=== PATIENT | female | born 1990 | race African-American/Black ===

== ENCOUNTER → 2016-12-01 | Outpatient (CLI) | payer MEDICAID | LOC: WI 09:38 | PROVIDERS: ATTEND Nurse Practitioner Family | DX: R10.11 Right upper quadrant pain (principal); K76.0 Fatty (change of) liver, not elsewhere classified | CPT/HCPCS: 76705 ==

== ENCOUNTER 2017-02-06 16:54 | Emergency (ER) | payer MEDICAID ==
[2017-02-06] MEDS ORDERED: DIAZEPAM 5 MG TABLET PO ONE (19:06)
[2017-02-06] MEDS ORDERED: DIPHENHYDRAMINE HCL 50 MG/ML VIAL IV ONE (19:09)
[2017-02-06] MEDS ORDERED: PROCHLORPERAZINE EDISYLATE INJ 10 MG/2 ML VIAL IV ONE (19:09)
--- NOTE | 2017-02-06 19:09 | ER Document Report ---
ED Medical Screen (RME) - General Chief Complaint: Headache Stated Complaint: HEADACHE Mode of Arrival: Ambulatory Information source: Patient Notes: 26-year-old female presents with complaints of headache one week duration in the frontal parietal occipital regions and the right lateral neck. Patient notes it hurts when she moves her neck. Denies any fevers or chills I have greeted and performed a rapid initial assessment of this patient. A comprehensive ED assessment and evaluation of the patient, analysis of test results and completion of the medical decision making process will be conducted by additional ED providers. PHYSICAL EXAMINATION: GENERAL: Well-appearing, well-nourished and in no acute distress. HEAD: Atraumatic, normocephalic. EYES: Pupils equal round extraocular movements intact, conjunctiva are normal. ENT: Nares patent right neck pain NECK: Normal range of motion LUNGS: No respiratory distress Musculoskeletal: Normal range of motion NEUROLOGICAL: Normal speech, normal gait. PSYCH: Normal mood, normal affect. SKIN: Warm, Dry, normal turgor, no rashes or lesions noted. TRAVEL OUTSIDE OF THE [place] IN LAST 30 DAYS: No - Related Data Allergies/Adverse Reactions: lidocaine [Lidocaine] Allergy (Verified 02/06/17 17:14) morphine [Morphine] Adverse Reaction (Severe, Verified 02/06/17 17:14) headache Past Medical History - Social History Chew tobacco use (# tins/day): No Frequency of alcohol use: None Drug Abuse: None - Past Medical History Cardiac Medical History: Denies: Hx Hypercholesterolemia, Hx Hypertension Pulmonary Medical History: Denies: Hx Asthma Neurological Medical History: Denies: Hx Migraine Endocrine Medical History: Denies: Hx Diabetes Mellitus Type 1, Hx Diabetes Mellitus Type 2 Renal/ Medical History: Denies: Hx Peritoneal Dialysis GI Medical History: Denies: Hx Gastroesophageal Reflux Disease Musculoskeltal Medical History: Infectious Medical History: Past Surgical History: Reports: Hx Section - x 3, Hx Tubal Ligation - Immunizations Immunizations up to date: Yes Hx Diphtheria, Pertussis, Tetanus Vaccination: Yes - 2010 Physical Exam - Vital signs Vitals: Temp Pulse Resp BP Pulse Ox 98.6 F 100 20 136/92 H 98 02/06/17 17:13 02/06/17 17:13 02/06/17 17:13 02/06/17 17:13 02/06/17 17:13 Course - Vital Signs Vital signs: Temp Pulse Resp BP Pulse Ox 98.6 F 100 20 136/92 H 98 02/06/17 17:13 02/06/17 17:13 02/06/17 17:13 02/06/17 17:13 02/06/17 17:13
[2017-02-06 20:43] VITALS: BP 143/85
--- NOTE | 2017-02-06 20:46 | ER Document Report ---
ED General - General Chief Complaint: Headache Stated Complaint: HEADACHE Mode of Arrival: Ambulatory Information source: Patient Notes: 26-year-old female presents with complaints of headache one week duration in the frontal parietal occipital regions and the right lateral neck. Patient notes it hurts when she moves her neck. Denies any fevers or chills TRAVEL OUTSIDE OF THE [place] IN LAST 30 DAYS: No - HPI Onset: Last week Onset/Duration: Persistent Quality of pain: Achy Severity: Mild Pain Level: 1 Associated symptoms: Headache Exacerbated by: Movement Relieved by: Denies Similar symptoms previously: No Recently seen / treated by doctor: No - Related Data Allergies/Adverse Reactions: lidocaine [Lidocaine] Allergy (Verified 02/06/17 17:14) morphine [Morphine] Adverse Reaction (Severe, Verified 02/06/17 17:14) headache Past Medical History - General Information source: Patient - Social History Smoking Status: Never Smoker Cigarette use (# per day): No Chew tobacco use (# tins/day): No Smoking Education Provided: No Frequency of alcohol use: None Drug Abuse: None Family History: Arthritis, DM, Hyperlipidemia, Hypertension, Malignancy, Thyroid Disfunction Patient has suicidal ideation: No Patient has homicidal ideation: No - Past Medical History Cardiac Medical History: Denies: Hx Hypercholesterolemia, Hx Hypertension Pulmonary Medical History: Denies: Hx Asthma Neurological Medical History: Denies: Hx Migraine Endocrine Medical History: Denies: Hx Diabetes Mellitus Type 1, Hx Diabetes Mellitus Type 2 Renal/ Medical History: Denies: Hx Peritoneal Dialysis GI Medical History: Denies: Hx Gastroesophageal Reflux Disease Musculoskeltal Medical History: Infectious Medical History: Past Surgical History: Reports: Hx Section - x 3, Hx Tubal Ligation - Immunizations Immunizations up to date: Yes Hx Diphtheria, Pertussis, Tetanus Vaccination: Yes - 2010 Review of Systems - Review of Systems Notes: REVIEW OF SYSTEMS: CONSTITUTIONAL : Denies fever, chills, or sweats. Denies recent illness. EENT: Admits to right lateral neck muscle pain CARDIOVASCULAR: Denies chest pain. Denies palpitations or racing or irregular heart beat. Denies ankle edema. RESPIRATORY: Denies cough, cold, or chest congestion. Denies shortness of breath, difficulty breathing, or wheezing. GASTROINTESTINAL: Denies abdominal pain or distention. Denies nausea, vomiting , or diarrhea. Denies blood in vomitus, stools, or per rectum. Denies black, tarry stools. Denies constipation. GENITOURINARY: Denies difficulty urinating, painful urination, burning, frequency, blood in urine, or discharge. FEMALE GENITOURINARY: Denies vaginal bleeding, heavy or abnormal periods, irregular periods. Denies vaginal discharge or odor. MUSCULOSKELETAL: Admits to right lateral neck muscle pain SKIN: Denies rash, lesions or sores. HEMATOLOGIC : Denies easy bruising or bleeding. LYMPHATIC: Denies swollen, enlarged glands. NEUROLOGICAL: Admits to headache PSYCHIATRIC: Denies anxiety or stress. Denies depression, suicidal ideation, or homicidal ideation. ALL OTHER SYSTEMS REVIEWED AND NEGATIVE. Dictation was performed using [employer] voice recognition software PHYSICAL EXAMINATION: GENERAL: Well-appearing, well-nourished and in no acute distress. HEAD: Atraumatic, normocephalic. EYES: Pupils equal round and reactive to light, extraocular movements intact, conjunctiva are normal. ENT: Nares patent, oropharynx clear without exudates. Moist mucous membranes. NECK: Normal range of motion, supple without lymphadenopathy it is tender on the right lateral paraspinal muscles into the trapezius LUNGS: Breath sounds clear to auscultation bilaterally and equal. No wheezes rales or rhonchi. HEART: Regular rate and rhythm without murmurs ABDOMEN: Soft, nontender, nondistended abdomen. No guarding, no rebound. No masses appreciated. Female : deferred Musculoskeletal: Normal range of motion, no pitting or edema. No cyanosis. NEUROLOGICAL: Cranial nerves grossly intact. Normal speech, normal gait. Normal sensory, motor exams PSYCH: Normal mood, normal affect. SKIN: Warm, Dry, normal turgor, no rashes or lesions noted. Physical Exam - Vital signs Vitals: Temp Pulse Resp BP Pulse Ox 98.6 F 100 20 136/92 H 98 02/06/17 17:13 02/06/17 17:13 02/06/17 17:13 02/06/17 17:13 02/06/17 17:13 Course - Re-evaluation Re-evalutation: 02/06/17 20:44 CT of the head was emergently performed which noted no acute abnormality, patient's presentation is more consistent with a cervical strain headache, patient was given Valium and notes symptoms have improved significantly. Patient wishes to be discharged home. Plan was to bring the patient back to room but given that her symptoms are much better and she wishes to be discharged home I will discharge her at her request at this time After performing a Medical Screening Examination, I estimate there is LOW risk for ACUTE GLAUCOMA, TEMPORAL ARTERITIS, MENINGITIS, INCRANIAL HEMORRHAGE, or ISCHEMIC STROKE thus I consider the discharge disposition reasonable. I have reevaluated this patient multiple times and no significant life threatening changes are noted. The patient and I have discussed the diagnosis and risks, and we agree with discharging home with close follow-up with the understanding that symptoms and presentations can change. We also discussed returning to the Emergency Department immediately if new or worsening symptoms occur. We have discussed the symptoms which are most concerning (e.g., changing or worsening symptoms, new numbness or weakness, vomiting, fever) that necessitate immediate return. - Vital Signs Vital signs: Temp Pulse Resp BP Pulse Ox 98.6 F 100 20 136/92 H 98 02/06/17 17:13 02/06/17 17:13 02/06/17 17:13 02/06/17 17:13 02/06/17 17:13 - Diagnostic Test Radiology reviewed: Image reviewed, Reports reviewed - No acute abnormality Discharge - Discharge Clinical Impression: cervical headache Condition: Stable Disposition: HOME, SELF-CARE Instructions: Neck Injury (Cervical Strain) ([facility]), Headache ([facility]) Prescriptions: Cyclobenzaprine HCl [Flexeril 10 mg Tablet] 10 mg PO TIDP PRN #10 tablet PRN Reason: Diazepam [Valium 5 mg Tablet] 5 mg PO QIDP PRN #10 tablet PRN Reason: Referrals: LLOYD LEMUS MD [ACTIVE STAFF] - Follow up tomorrow
== END 2017-02-06 20:43 | disposition home or self-care (01) ==
LOC: ER 16:54
DX: R51 Headache (principal); M54.2 Cervicalgia; Z88.4 Allergy status to anesthetic agent
CPT/HCPCS: 99284; 96374; 96375; 70450; J3490; J1200; J0780

== ENCOUNTER 2017-02-10 22:58 | Emergency (ER) | payer MEDICAID ==
[2017-02-11] MEDS ORDERED: PENICILLIN G BENZATHINE 1.2 MILLION UNIT/2 ML DISP.SYRIN IM ONE (02:40)
--- NOTE | 2017-02-11 02:40 | ER Document Report ---
ED ENT - General Chief Complaint: Cold Symptoms Stated Complaint: COUGH AND HEADACHE Time seen by provider: 02:40 Mode of Arrival: Ambulatory Information source: Patient TRAVEL OUTSIDE OF THE [place] IN LAST 30 DAYS: No - HPI Patient complains to provider of: Throat problem Onset: Other - 2 days Onset/Duration: Persistent, Worse Quality of pain: Achy Severity: Moderate Pain Level: 2 Location of pain: Sinus, Throat Associated symptoms: Chills, Congestion, Cough, Sinus pain Notes: Patient is a 18-year-old female with no past medical history besides migraine headaches, who presents to the emergency room complaining of a sore throat with cough productive of clear phlegm at times, congestion, sinus pain and pressure, as well as a headache, symptoms of going on for the past 2 days and worsen this evening, she denies any sick contacts - Related Data Allergies/Adverse Reactions: lidocaine [Lidocaine] Allergy (Verified 02/11/17 00:09) morphine [Morphine] Adverse Reaction (Severe, Verified 02/11/17 00:09) headache Past Medical History - General Information source: Patient - Social History Smoking Status: Never Smoker Family History: Arthritis, DM, Hyperlipidemia, Hypertension, Malignancy, Thyroid Disfunction Patient has suicidal ideation: No Patient has homicidal ideation: No - Past Medical History Cardiac Medical History: Denies: Hx Hypercholesterolemia, Hx Hypertension Pulmonary Medical History: Denies: Hx Asthma Neurological Medical History: Denies: Hx Migraine Endocrine Medical History: Denies: Hx Diabetes Mellitus Type 1, Hx Diabetes Mellitus Type 2 Renal/ Medical History: Denies: Hx Peritoneal Dialysis GI Medical History: Denies: Hx Gastroesophageal Reflux Disease Musculoskeltal Medical History: Infectious Medical History: Past Surgical History: Reports: Hx Section - x 3, Hx Tubal Ligation - Immunizations Immunizations up to date: Yes Hx Diphtheria, Pertussis, Tetanus Vaccination: Yes - 2010 Review of Systems - Review of Systems Constitutional: See HPI EENT: See HPI Cardiovascular: No symptoms reported Respiratory: Cough Gastrointestinal: No symptoms reported Genitourinary: No symptoms reported Female Genitourinary: No symptoms reported Musculoskeletal: No symptoms reported Skin: No symptoms reported Hematologic/Lymphatic: No symptoms reported Neurological/Psychological: No symptoms reported -: Yes All other systems reviewed and negative Physical Exam - Vital signs Vitals: Temp Pulse Resp BP Pulse Ox 98.9 F 115 H 22 H 146/94 H 100 02/11/17 00:11 02/11/17 00:11 02/11/17 00:11 02/11/17 00:11 02/11/17 00:11 Interpretation: Hypertensive, Tachycardic - General General appearance: Alert In distress: None - HEENT Head: Normocephalic, Atraumatic Eyes: Normal Conjunctiva: Normal Extraocular movements intact: Yes Eyelashes: Normal Pupils: PERRL Ears: Normal External canal: Normal Tympanic membrane: Normal Sinus: Maxillary, Tenderness Mouth/Lips: Normal Pharynx: Erythema, Exudate, Tonsillar hypertrophy Neck: Normal - Respiratory Respiratory status: No respiratory distress Chest status: Nontender Breath sounds: Normal Chest palpation: Normal - Cardiovascular Rhythm: Regular, Tachycardia Heart sounds: Normal auscultation Murmur: No - Abdominal Inspection: Normal Distension: No distension Bowel sounds: Normal Tenderness: Nontender Organomegaly: No organomegaly - Back Back: Normal, Nontender - Extremities General upper extremity: Normal inspection, Nontender, Normal color, Normal ROM , Normal temperature General lower extremity: Normal inspection, Nontender, Normal color, Normal ROM , Normal temperature, Normal weight bearing. No: Shawanda's sign - Neurological Neuro grossly intact: Yes Cognition: Normal Orientation: AAOx4 Carson Coma Scale Eye Opening: Spontaneous Carson Coma Scale Verbal: Oriented Dee Coma Scale Motor: Obeys Commands Dee Coma Scale Total: 15 Speech: Normal Motor strength normal: LUE, RUE, LLE, RLE Sensory: Normal - Psychological Associated symptoms: Normal affect, Normal mood - Skin Skin Temperature: Warm Skin Moisture: Dry Skin Color: Normal Course - Re-evaluation Re-evalutation: 02/11/17 03:38 Physical exam findings are consistent with strep pharyngitis, patient also noted to be mildly tachycardic, and complaining of a headache, she was given IV fluids and medications, as well as a Bicillin injection, advised to take Tylenol or Motrin as needed for pain or fever, follow up with a primary care provider in 2-3 days as needed or return if symptoms worsen, patient acknowledges understanding and agreement with this plan 02/11/17 04:08 Patient reports headache is resolved after receiving IV fluids and medications, she will be discharged with instructions - Vital Signs Vital signs: Temp Pulse Resp BP Pulse Ox 98.0 F 105 H 22 H 141/88 H 98 02/11/17 02:57 02/11/17 02:57 02/11/17 00:11 02/11/17 02:57 02/11/17 02:57 Discharge - Discharge Clinical Impression: Strep pharyngitis Condition: Stable Disposition: HOME, SELF-CARE Instructions: Strep Throat ([facility]) Additional Instructions: Follow up with your primary care provider in one to 2 days. Return to the emergency room immediately if symptoms worsen or any additional concerns. Drink plenty fluids and get plenty of rest. Tylenol or Motrin as needed for fever or pain. Forms: Return to Work
[2017-02-11] MEDS ORDERED: NORMAL SALINE 1000 ML 1,000 ML IV PRN (02:58)
[2017-02-11] MEDS ORDERED: KETOROLAC TROMETHAMINE INJ/PF 30 MG/1 ML SDV IV ONE (02:58)
[2017-02-11 05:06] VITALS: BP 125/80
== END 2017-02-11 05:06 | disposition home or self-care (01) ==
LOC: ER 22:58
DX: J02.0 Streptococcal pharyngitis (principal); R05 Cough; R51 Headache; J02.9 Acute pharyngitis, unspecified; R09.81 Nasal congestion
CPT/HCPCS: 99282; 96372; 96361; 96374; J1885; J0561; J7030

== ENCOUNTER 2017-02-12 19:05 | Emergency (ER) | payer MEDICAID ==
[2017-02-12] MEDS ORDERED: BENZONATATE 100 MG CAPSULE PO ONE (20:01)
[2017-02-12] MEDS ORDERED: IBUPROFEN 800 MG TABLET PO ONE (20:01)
--- NOTE | 2017-02-12 20:04 | ER Document Report ---
HPI - HPI Patient complains to provider of: right hip pain Onset: Yesterday Onset/Duration: Gradual Quality of pain: Achy Pain Level: 3 Context: Patient was seen here yesterday for strep pharyngitis and given an injection of Bicillin to her right hip. Patient complains of tenderness and a palpable nodule under the surface of the skin. Patient complains of continued cough and congestion. Associated Symptoms: Nonproductive cough, Sore throat, Other - Right hip tenderness. denies: Fever Exacerbated by: Denies Relieved by: Denies Similar symptoms previously: No Recently seen / treated by doctor: Yes - ROS ROS below otherwise negative: Yes Systems Reviewed and Negative: Yes All other systems reviewed and negative - CONSTITUTIONAL Constitutional: DENIES: Fever - EENT EENT: REPORTS: Sore Throat, Congestion - RESPIRATORY Respiratory: REPORTS: Coughing. DENIES: Trouble Breathing - GASTROINTESTINAL Gastrointestinal: DENIES: Nausea, Patient vomiting - Tender nodule to right hip - REPRODUCTIVE Reproductive: DENIES: : - DERM Skin Color: Normal Past Medical History - General Information source: Patient - Social History Smoking Status: Never Smoker Frequency of alcohol use: Occasional Drug Abuse: None Occupation: none Lives with: Family Family History: Arthritis, DM, Hyperlipidemia, Hypertension, Malignancy, Thyroid Disfunction - Past Medical History Cardiac Medical History: Denies: Hx Hypercholesterolemia, Hx Hypertension Pulmonary Medical History: Denies: Hx Asthma Neurological Medical History: Reports: Hx Migraine Endocrine Medical History: Denies: Hx Diabetes Mellitus Type 1, Hx Diabetes Mellitus Type 2 Renal/ Medical History: Denies: Hx Peritoneal Dialysis GI Medical History: Denies: Hx Gastroesophageal Reflux Disease Musculoskeltal Medical History: Infectious Medical History: Past Surgical History: Reports: Hx Section - x 3, Hx Tubal Ligation - Immunizations Immunizations up to date: Yes Hx Diphtheria, Pertussis, Tetanus Vaccination: Yes - 2010 Vertical Provider Document - CONSTITUTIONAL Agree With Documented VS: Yes Exam Limitations: No Limitations General Appearance: WD/WN, No Apparent Distress - INFECTION CONTROL TRAVEL OUTSIDE OF THE [place] IN LAST 30 DAYS: No - HEENT HEENT: Atraumatic, Normocephalic, Pharyngeal Tenderness, Pharyngeal Erythema. negative: Pharyngeal Exudate, Tympanic Membrane Red, Tympanic Membrane Bulging - NECK Neck: Normal Inspection, Supple. negative: Lymphadenopathy-Left, Lymphadenopathy-Right - RESPIRATORY Respiratory: No Respiratory Distress, Rhonchi - CARDIOVASCULAR Cardiovascular: Regular Rate, Regular Rhythm, No Murmur - BACK Back: Normal Inspection - MUSCULOSKELETAL/EXTREMETIES Musculoskeletal/Extremeties: MAEW - NEURO Level of Consciousness: Awake, Alert, Appropriate Motor/Sensory: No Motor Deficit - DERM Integumentary: Warm, Dry Adult Front & Back Diagram: 1 - Mildly ecchymotic area with palpable nodule in subcutaneous tissue at the site of patient's most recent IM injection, no concern for cellulitis Discharge - Discharge Clinical Impression: pain at site of IM injection URI (upper respiratory infection) Qualifiers: URI type: unspecified URI Qualified Code(s): J06.9 - Acute upper respiratory infection, unspecified Condition: Stable Disposition: HOME, SELF-CARE Instructions: Upper Respiratory Illness ([facility]), Anti-Inflammatory Medication ( [facility]), Warm Packs ([facility]) Additional Instructions: Return immediately for any new or worsening symptoms Followup with your primary care provider, call tomorrow to make a followup appointment Apply warm compresses to right hip area frequently Prescriptions: Benzonatate [Tessalon Perle 100 mg Capsule] 100 mg PO Q8HP PRN #20 cap PRN Reason: Naproxen [Naprosyn 250 Nmg Tablet] 1 tab PO BID #14 tablet Referrals: [facility] [Provider Group] - Follow up as needed
[2017-02-12 20:12] VITALS: BP 148/88
== END 2017-02-12 20:11 | disposition home or self-care (01) ==
LOC: ER 19:05
DX: M25.551 Pain in right hip (principal); R22.41 Localized swelling, mass and lump, right lower limb; J02.0 Streptococcal pharyngitis; Z98.890 Other specified postprocedural states; R05 Cough; R11.2 Nausea with vomiting, unspecified
CPT/HCPCS: 99283; J3490 ×2

== ENCOUNTER 2017-08-09 19:13 | Emergency (ER) | payer MEDICAID ==
--- NOTE | 2017-08-09 21:24 | ER Document Report ---
ED General - General Chief Complaint: Abdominal Pain Stated Complaint: HEAD PAIN/STOMACH PAIN Time Seen by Provider: 08/09/17 20:50 Mode of Arrival: Ambulatory Information source: Patient, Friend Notes: Patient is a morbidly obese black female comes emergency room complaining of headache and abdominal pain. Patient states her headache started around 1 PM today it is frontal and works its way to the back. Denies any neck pain. She also states that approximately 4 PM she started having midepigastric pain that has made her feel like she is nauseated and wants to throw up. States her pain in her stomach and head seem to occur more when she is up and walking around. Patient denies any history of hypertension or other medical problems. She also states that she has been under an increased amount of stress in her life for the past month and a half. She does take phentermine for weight loss. She took it approximately 1 month ago but was sporadic in her taking it and this month she has been taking it on a regular basis as prescribed. She only has a history of 3 C-sections. She denies any chest pain or shortness of breath she has not vomited at all bowel movements have been normal. Patient points to mid epigastric area where her discomfort is located. TRAVEL OUTSIDE OF THE [place] IN LAST 30 DAYS: No - HPI Patient complains to provider of: Headache and abdominal pain Onset: This afternoon Onset/Duration: Gradual, Constant, Worse Quality of pain: Achy, Pressure, Sharp Severity: Severe Pain Level: 4 Associated symptoms: Headache, Nausea Exacerbated by: Standing, Movement, Walking Relieved by: Remaining still Similar symptoms previously: No Recently seen / treated by doctor: No - Related Data Allergies/Adverse Reactions: lidocaine [Lidocaine] Allergy (Verified 08/09/17 19:23) morphine [Morphine] Adverse Reaction (Severe, Verified 08/09/17 19:23) headache Past Medical History - General Information source: Patient Last Menstrual Period: 2 weeks ago - Social History Smoking Status: Never Smoker Frequency of alcohol use: None Drug Abuse: None 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 Lives with: Family Family History: Arthritis, DM, Hyperlipidemia, Hypertension, Malignancy, Thyroid Disfunction Patient has suicidal ideation: No Patient has homicidal ideation: No - Past Medical History Cardiac Medical History: Denies: Hx Hypercholesterolemia, Hx Hypertension Pulmonary Medical History: Denies: Hx Asthma Neurological Medical History: Reports: Hx Migraine Endocrine Medical History: Denies: Hx Diabetes Mellitus Type 1, Hx Diabetes Mellitus Type 2 Renal/ Medical History: Denies: Hx Peritoneal Dialysis GI Medical History: Denies: Hx Gastroesophageal Reflux Disease Musculoskeltal Medical History: Infectious Medical History: Past Surgical History: Reports: Hx Section - x 3, Hx Tubal Ligation - Immunizations Immunizations up to date: Yes Hx Diphtheria, Pertussis, Tetanus Vaccination: Yes - 2010 Review of Systems - Review of Systems Constitutional: No symptoms reported EENT: No symptoms reported Cardiovascular: No symptoms reported Respiratory: No symptoms reported Gastrointestinal: Abdominal pain Genitourinary: No symptoms reported Female Genitourinary: No symptoms reported Musculoskeletal: No symptoms reported Skin: No symptoms reported Hematologic/Lymphatic: No symptoms reported Neurological/Psychological: Headaches -: Yes All other systems reviewed and negative Physical Exam - Vital signs Vitals: Temp Pulse Resp BP Pulse Ox 98.5 F 79 16 151/108 H 100 08/09/17 19:21 08/09/17 19:21 08/09/17 19:21 08/09/17 19:21 08/09/17 19:21 - General General appearance: Alert - HEENT Head: Atraumatic Eyes: Normal Conjunctiva: Normal Extraocular movements intact: Yes Pupils: PERRL Ears: Normal External canal: Normal Tympanic membrane: Normal Sinus: Normal Nasal: Normal Mouth/Lips: Normal Mucous membranes: Normal Pharynx: Normal Neck: Normal - Respiratory Respiratory status: No respiratory distress Chest status: Nontender Breath sounds: Normal Chest palpation: Normal - Cardiovascular Heart sounds: Normal auscultation Murmur: No - Abdominal Inspection: Morbidly Obese Distension: No distension Bowel sounds: Normal Tenderness: Tender, Other - Midepigastric region only Organomegaly: No organomegaly Adult front & back diagram: 1 - Only discomfort and pain on palpation right midepigastric region. 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 Back in to talk the patient after all labs and CT were back. She indicates that her headache has improved almost gone and her abdominal pain has also dissipated. Also noted is patient's diastolic blood pressure was slightly elevated as well and we have discussed this and she will discontinue any additive salt and states that her blood pressure is usually low except when she does not feel good so she will monitor blood pressures at home and keep a log for her primary care however she will see. She has also been instructed should the headaches return or she becomes concerned to return to ER for a recheck. - Vital Signs Vital signs: Temp Pulse Resp BP Pulse Ox 98.5 F 79 16 151/108 H 100 08/09/17 19:21 08/09/17 19:21 08/09/17 19:21 08/09/17 19:21 08/09/17 19:21 - Laboratory Result Diagrams: 08/09/17 21:40 08/09/17 21:40 Laboratory results interpreted by me: 08/09/17 08/09/17 21:07 21:40 RDW 14.4 H Ur Leukocyte Esterase TRACE H - Diagnostic Test Radiology reviewed: Reports reviewed - No acute findings on CT report of the head. Mention of ethmoid inflammation however this is no change from the previous CT. Discharge - Discharge Clinical Impression: Tension headache, Chronic ethmoidal sinusitis, Reflux esophagitis, PUD (peptic ulcer disease) Condition: Stable Disposition: HOME, SELF-CARE Instructions: Abdominal Pain ([facility]), Acid-Suppressing Medication ([facility]), Prilosec (Acid Pump Inhibitor) ([facility]) Additional Instructions: Home and rest. Medication as prescribed and as necessary. As we discussed the headache since you have a recent history of moderate amount of increased stress in the past month we are going to treat you for a tension headache and for a early onset of peptic ulcer disease versus esophagitis or inflammation of her esophagus. I am placing you on Prilosec you can get this [id number] or by prescription and on a headache pill: Fioricet he may take as directed. Since you have a primary health provider I suggest contacting them tomorrow and following up. Also since you have an elevated blood pressure I would monitor your blood pressures and keep a log and present them to your primary healthcare provider in the next week to 10 days in order to see if there is any kind of an elevation in a reason to place you on medications. Again should you have any concerns or problems the headaches return the pain in the abdomen gets worse return to ER for a recheck. Prescriptions: Butalb/Acetaminophen/Caffeine [Fioricet (50-325-40 mg) Tablet] 1 - 2 tab PO Q4H #20 tab Omeprazole/Sodium Bicarbonate [Omeprazole-Bicarb 40-1,100 Cap] 1 each PO DAILY # 30 capsule Forms: Elevated Blood Pressure
[2017-08-09] MEDS ORDERED: ONDANSETRON 4 MG TAB.RAPDIS PO ONE (21:31)
[2017-08-09 21:54] LABS: ABSOLUTE BASOPHILS # (AUTO) 0.1 10^3/uL (0.0-0.2); ABSOLUTE EOSINOPHILS # (AUTO) 0.3 10^3/uL (0.0-0.6); ABSOLUTE LYMPHOCYTES (AUTO) 2.8 10^3/uL (0.5-4.7); ABSOLUTE MONOCYTES (AUTO) 0.5 10^3/uL (0.1-1.4); ABSOLUTE NEUT (AUTO) 5.4 10^3/uL (1.7-8.2); BASOPHILS % (AUTO) 0.9 % (0-2); EOSINOPHILS % (AUTO) 2.9 % (0-6); HEMATOCRIT 38.5 % (36.0-47.0); HEMOGLOBIN 12.8 g/dL (12.0-15.5); HGB HCT DIFFERENCE -0.1; MEAN CORPUSCULAR HEMOGLOBIN 28.9 pg (27.0-33.4); MEAN CORPUSCULAR HGB CONC 33.3 g/dL (32.0-36.0); MEAN CORPUSCULAR VOLUME 87 fl (80-97); MONOCYTES % (AUTO) 5.6 % (3-13); RED BLOOD COUNT 4.42 10^6/uL (3.72-5.28); RED CELL DISTRIBUTION WIDTH 14.4 % (11.5-14.0); SEGMENTED NEUTROPHILS % (AUTO) 59.6 % (42-78)
[2017-08-09 22:06] LABS: ALANINE AMINOTRANSFERASE 26 U/L (9-52); ALBUMIN 3.8 g/dL (3.5-5.0); ALKALINE PHOSPHATASE 97 U/L (38-126); ANION GAP 11 (5-19); ASPARTATE AMINO TRANSFERASE 15 U/L (14-36); BILIRUBIN,DIRECT 0.3 mg/dL (0.0-0.4); BILIRUBIN,TOTAL 0.7 mg/dL (0.2-1.3); BLOOD UREA NITROGEN 8 mg/dL (7-20); CALCIUM 9.5 mg/dL (8.4-10.2); CARBON DIOXIDE 28 mmol/L (22-30); CHLORIDE 103 mmol/L (98-107); CREATININE RESULT 0.73 mg/dL (0.52-1.25); GLUCOSE 95 mg/dL (75-110); POTASSIUM 4.1 mmol/L (3.6-5.0); SODIUM 141.6 mmol/L (137-145); TOTAL PROTEIN 7.4 g/dL (6.3-8.2)
--- NOTE | 2017-08-09 22:07 | RADIOLOGY REPORT (SQ) ---
EXAM DESCRIPTION: CT HEAD WITHOUT COMPLETED DATE/TIME: 08/09/2017 9:57 pm REASON FOR STUDY: headache new type from past COMPARISON: 02/06/2017. TECHNIQUE: Axial images acquired through the brain without intravenous contrast. Images reviewed wi th bone, brain and subdural windows. Images stored on PACS. All CT scanners at this facility use dose modulation, iterative reconstruction, and/or weight based d osing when appropriate to reduce radiation dose to as low as reasonably achievable (ALARA). [facility]: Dose Right [facility]: CareDose [facility]: Dose Right [facility]: Teradose 4D [facility]: [employer] RADIATION DOSE: Up-to-date CT equipment and radiation dose reduction techniques were employed. CTDIv ol: 64.6 mGy. DLP: 1163 mGy-cm. mGy. LIMITATIONS: None. FINDINGS: VENTRICLES: Normal size and contour. CEREBRUM: No masses. No hemorrhage. No midline shift. No evidence for acute infarction. Normal gra y/white matter differentiation. No areas of low density in the white matter. CEREBELLUM: No masses. No hemorrhage. No alteration of density. No evidence for acute infarction. EXTRAAXIAL SPACES: No fluid collections. No masses. ORBITS AND GLOBE: No intra- or extraconal masses. Normal contour of globe without masses. CALVARIUM: No fracture. PARANASAL SINUSES: Mucous membrane thickening in the ethmoid sinuses. SOFT TISSUES: No mass or hematoma. OTHER: No other significant finding. IMPRESSION: NORMAL BRAIN CT WITHOUT CONTRAST. ETHMOID SINUS DISEASE, SIMILAR TO THE PRIOR STUDY. EVIDENCE OF ACUTE STROKE: NO. COMMENT: Quality ID # [id number]: Final reports with documentation of one or more dose reduction techniques (e.g., Automated exposure control, adjustment of the mA and/or kV according to patient size, use of iterative reconstruction technique) TECHNICAL DOCUMENTATION: JOB ID: [id number] [employer]- All Rights Reserved
[2017-08-09 22:22] LABS: APPEARANCE,URINE SLIGHTLY-CLOUDY; BILIRUBIN,URINE NEGATIVE (NEGATIVE); GLUCOSE, URINE NEGATIVE (NEGATIVE); KETONES,URINE NEGATIVE (NEGATIVE); LEUKOCYTE ESTERASE,URINE TRACE (NEGATIVE); NITRITE,URINE NEGATIVE (NEGATIVE); PROTEIN,URINE NEGATIVE (NEGATIVE); URINE SPECIFIC GRAVITY 1.017; UROBILINOGEN,URINE NEGATIVE mg/dL (<2.0)
[2017-08-10 00:35] VITALS: BP 121/80
--- NOTE | 2017-08-10 10:31 | EKG REPORT ---
SEVERITY:- NORMAL ECG - SINUS RHYTHM : Confirmed by: Iwona Fallon 10-Aug-2017 10:31:06
== END 2017-08-10 00:37 | disposition home or self-care (01) ==
LOC: ER 19:13
DX: G44.209 Tension-type headache, unspecified, not intractable (principal); J32.2 Chronic ethmoidal sinusitis; K27.9 Peptic ulcer, site unspecified, unspecified as acute or chronic, without hemorrhage or perforation; K21.0 Gastro-esophageal reflux disease with esophagitis; R03.0 Elevated blood-pressure reading, without diagnosis of hypertension; R10.13 Epigastric pain; R11.0 Nausea; Z79.899 Other long term (current) drug therapy; Z88.4 Allergy status to anesthetic agent
CPT/HCPCS: 93005; 99284; 36415; 85025; 80053; 81001; 70450; 93010; S0119

== ENCOUNTER 2017-11-09 19:19 | Emergency (ER) | payer MEDICAID ==
[2017-11-09 20:04] LABS: APPEARANCE,URINE CLEAR; BILIRUBIN,URINE NEGATIVE (NEGATIVE); COLOR,URINE YELLOW; GLUCOSE, URINE NEGATIVE (NEGATIVE); KETONES,URINE NEGATIVE (NEGATIVE); LEUKOCYTE ESTERASE,URINE NEGATIVE (NEGATIVE); NITRITE,URINE NEGATIVE (NEGATIVE); PROTEIN,URINE NEGATIVE (NEGATIVE); URINE SPECIFIC GRAVITY 1.018; UROBILINOGEN,URINE NEGATIVE mg/dL (<2.0)
[2017-11-09] MEDS ORDERED: IBUPROFEN 800 MG TABLET PO ONE (22:47)
[2017-11-09] MEDS ORDERED: PHENAZOPYRIDINE HCL 200 MG TABLET PO ONE (22:47)
--- NOTE | 2017-11-09 22:51 | ER Document Report ---
ED General - General Chief Complaint: Urinary Problem Stated Complaint: URINE PROBLEM Time Seen by Provider: 11/09/17 22:16 TRAVEL OUTSIDE OF THE [place] IN LAST 30 DAYS: No - HPI Patient complains to provider of: Bladder pain back pain Notes: Patient coming in for evaluation of bladder pain states having dysuria and urinary frequency. Patient states is been ongoing for some time now saw her PCP today had a urinalysis performed and urine culture states her urinalysis was negative however like a second opinion therefore came to the ER today. Patient also states she has had right-sided back pain states it is similar to when she pinched nerve in the past. Patient also states she has been performing full dancing exercises at home. Patient states she has had 3 sections currently no vaginal discharge vaginal bleeding or trauma patient resting comfortably upon my evaluation. Patient states she is not taking any medication for either her back pain or her bladder pain. - Related Data Allergies/Adverse Reactions: lidocaine [Lidocaine] Allergy (Verified 11/09/17 19:21) morphine [Morphine] Adverse Reaction (Severe, Verified 11/09/17 19:21) headache Past Medical History - Social History Smoking Status: Unknown if Ever Smoked Family History: Arthritis, DM, Hyperlipidemia, Hypertension, Malignancy, Thyroid Disfunction Patient has suicidal ideation: No Patient has homicidal ideation: No - Past Medical History Cardiac Medical History: Denies: Hx Hypercholesterolemia, Hx Hypertension Pulmonary Medical History: Denies: Hx Asthma Neurological Medical History: Reports: Hx Migraine Endocrine Medical History: Denies: Hx Diabetes Mellitus Type 1, Hx Diabetes Mellitus Type 2 Renal/ Medical History: Denies: Hx Peritoneal Dialysis GI Medical History: Denies: Hx Gastroesophageal Reflux Disease Musculoskeltal Medical History: Infectious Medical History: Past Surgical History: Reports: Hx Section - x 3, Hx Tubal Ligation - Immunizations Immunizations up to date: Yes Hx Diphtheria, Pertussis, Tetanus Vaccination: Yes - 2010 Review of Systems - Review of Systems Constitutional: No symptoms reported EENT: No symptoms reported Cardiovascular: No symptoms reported Respiratory: No symptoms reported Gastrointestinal: Abdominal pain Genitourinary: No symptoms reported Female Genitourinary: No symptoms reported Musculoskeletal: Back pain Skin: No symptoms reported Hematologic/Lymphatic: No symptoms reported Neurological/Psychological: No symptoms reported -: Yes All other systems reviewed and negative Physical Exam - Vital signs Vitals: Temp Pulse BP Pulse Ox 98.5 F 82 131/72 H 99 11/09/17 19:59 11/09/17 19:59 11/09/17 19:59 11/09/17 19:59 Interpretation: Normal - General General appearance: Appears well, Alert - HEENT Head: Normocephalic, Atraumatic Eyes: Normal Pupils: PERRL - Respiratory Respiratory status: No respiratory distress Chest status: Nontender Breath sounds: Normal Chest palpation: Normal - Cardiovascular Rhythm: Regular Heart sounds: Normal auscultation Murmur: No - Abdominal Inspection: Normal Distension: No distension Bowel sounds: Normal Tenderness: Tender - Mild suprapubic tenderness Organomegaly: No organomegaly - Back Back: Normal, Nontender - Extremities General upper extremity: Normal inspection, Nontender, Normal color, Normal ROM , Normal temperature General lower extremity: Normal inspection, Nontender, Normal color, Normal ROM , Normal temperature, Normal weight bearing. No: Shawanda's sign - Neurological Neuro grossly intact: Yes Cognition: Normal Orientation: AAOx4 Dee Coma Scale Eye Opening: Spontaneous Dee Coma Scale Verbal: Oriented [place] Coma Scale Motor: Obeys Commands Dee Coma Scale Total: 15 Speech: Normal Motor strength normal: LUE, RUE, LLE, RLE Sensory: Normal - Psychological Associated symptoms: Normal affect, Normal mood - Skin Skin Temperature: Warm Skin Moisture: Dry Skin Color: Normal Course - Re-evaluation Re-evalutation: 11/09/17 23:24 The patient presents with abdominal pain without signs of peritonitis or other life-threatening or serious etiology. The patient appears stable for discharge and has been instructed to return immediately if the symptoms worsen in any way , or in 8-12hr if not improved for re-evaluation. The patient has been instructed to return if the symptoms worsen or change in any way. The patient presents with low back pain without signs of spinal cord compression, cauda equina syndrome, infection, aneurysm, or other serious etiology. The patient is neurologically intact. Given the extremely low risk of these diagnoses further testing and evaluation for these possibilities does not appear to be indicated at this time. The patient has been instructed to return if the symptoms worsen or change in any way. Patient with history of being approximately 3 times. Explained to patient more likely some of her issues may be due to number of pregnancies. 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 Urinalysis did not show any signs of infection offered culture however patient states her PCP is Tyler perform this. Patient states her back pains are resolved. Patient will be discharged home. - Vital Signs Vital signs: Temp Pulse Resp BP Pulse Ox 98.3 F 69 16 128/82 H 100 11/09/17 22:55 11/09/17 22:55 11/09/17 22:55 11/09/17 22:55 11/09/17 22:55 - Laboratory Laboratory results interpreted by me: 11/09/17 19:43 Urine Blood SMALL H Discharge - Discharge Clinical Impression: Bladder pain Back pain Qualifiers: Back pain location: low back pain Chronicity: acute Back pain laterality: right Sciatica presence: unspecified whether sciatica present Qualified Code(s) : M54.5 - Low back pain Disposition: HOME, SELF-CARE Instructions: Anti-Inflammatory Medication ([facility]), Low Back Pain ([facility]), Stretching Exercises for the Back ([facility]) Additional Instructions: Your laboratory studies and I did not show any signs of infection. Please follow-up with your primary care physician for your culture results. Part of the issue with your pain may be due to the multiple pregnancies that you had changing the actual anatomy of the bladder were lysed in the body. If your bladder drops she can have incomplete bladder emptying which can cause discomfort. 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 Please take Pyridium and Motrin as prescribed. He may also take Tylenol for pain control. Prescriptions: Ibuprofen [Motrin 800 mg Tablet] 800 mg PO Q8H PRN #30 tab PRN Reason: Phenazopyridine HCl [Pyridium 200 mg Tablet] 200 mg PO TID #20 tablet Forms: Return to Work
[2017-11-09 22:57] VITALS: BP 128/82
== END 2017-11-09 22:55 | disposition home or self-care (01) ==
LOC: ER 19:19
DX: R39.89 Other symptoms and signs involving the genitourinary system (principal); M54.5 Low back pain; R30.0 Dysuria; R35.0 Frequency of micturition; Z88.6 Allergy status to analgesic agent; Z98.51 Tubal ligation status
CPT/HCPCS: 99283; 81025; 81001; J3490 ×2

== ENCOUNTER 2018-01-10 10:22 | Emergency (ER) | payer MEDICAID ==
--- NOTE | 2018-01-10 11:40 | ER Document Report ---
ED Medical Screen (RME) - General Chief Complaint: Abdominal Pain Stated Complaint: STOMACH PAIN, BLOOD IN URINE Time Seen by Provider: 01/10/18 11:29 Notes: Patient states that she has had lower abdominal pain and some blood. Uncertain whether is coming from vagina or from her urine. Was recently being treated for UTI on Cipro. Has any fever, chills, sweats. Occasionally pain radiates to her right flank. Symptoms have been present for several days. I have greeted and performed a rapid initial assessment of this patient. A comprehensive ED assessment and evaluation of the patient, analysis of test results and completion of the medical decision making process will be conducted by additional ED providers. TRAVEL OUTSIDE OF THE [place] IN LAST 30 DAYS: No - Related Data Allergies/Adverse Reactions: lidocaine [Lidocaine] Allergy (Verified 01/10/18 10:24) morphine [Morphine] Adverse Reaction (Severe, Verified 01/10/18 10:24) headache Past Medical History - Social History Chew tobacco use (# tins/day): No Frequency of alcohol use: Occasional Drug Abuse: None - Past Medical History Cardiac Medical History: Denies: Hx Hypercholesterolemia, Hx Hypertension Pulmonary Medical History: Denies: Hx Asthma Neurological Medical History: Reports: Hx Migraine Endocrine Medical History: Denies: Hx Diabetes Mellitus Type 1, Hx Diabetes Mellitus Type 2 Renal/ Medical History: Denies: Hx Peritoneal Dialysis GI Medical History: Denies: Hx Gastroesophageal Reflux Disease Musculoskeltal Medical History: Infectious Medical History: Past Surgical History: Reports: Hx Section - x 3, Hx Tubal Ligation - Immunizations Immunizations up to date: Yes Hx Diphtheria, Pertussis, Tetanus Vaccination: Yes - 2010 Physical Exam - Vital signs Vitals: Temp Pulse Resp BP Pulse Ox 99.0 F 87 18 141/92 H 97 01/10/18 10:33 01/10/18 10:33 01/10/18 10:33 01/10/18 10:33 01/10/18 10:33 Course - Vital Signs Vital signs: Temp Pulse Resp BP Pulse Ox 98.9 F 98 18 115/77 100 01/10/18 15:01 01/10/18 15:01 01/10/18 10:34 01/10/18 15:01 01/10/18 15:01 - Laboratory Result Diagrams: 01/10/18 13:30 01/10/18 13:30 Laboratory results interpreted by me: 01/10/18 12:00 Urine Protein 30 H Urine Ketones 25 H Urine Blood MODERATE H Doctor's Discharge - Discharge Clinical Impression: Ovarian cyst, Hematuria Condition: Good Disposition: HOME, SELF-CARE Instructions: Abdominal Pain ([facility]), Hematuria ([facility]), Ovarian Cyst ([facility]) Prescriptions: Tramadol HCl 50 mg PO Q1 PRN #14 tablet PRN Reason: Referrals: BULMARO BEAL MD [Primary Care Provider] - Follow up as needed
[2018-01-10 12:47] LABS: APPEARANCE,URINE CLEAR; BILIRUBIN,URINE NEGATIVE (NEGATIVE); COLOR,URINE YELLOW; GLUCOSE, URINE NEGATIVE (NEGATIVE); KETONES,URINE 25 mg/dL (NEGATIVE); LEUKOCYTE ESTERASE,URINE NEGATIVE (NEGATIVE); NITRITE,URINE NEGATIVE (NEGATIVE); PROTEIN,URINE 30 mg/dL (NEGATIVE); URINE SPECIFIC GRAVITY 1.029; UROBILINOGEN,URINE NEGATIVE mg/dL (<2.0)
[2018-01-10 13:48] LABS: ABSOLUTE EOSINOPHILS # (AUTO) 0.3 10^3/uL (0.0-0.6); ABSOLUTE LYMPHOCYTES (AUTO) 2.3 10^3/uL (0.5-4.7); ABSOLUTE MONOCYTES (AUTO) 0.4 10^3/uL (0.1-1.4); ABSOLUTE NEUT (AUTO) 5.1 10^3/uL (1.7-8.2); BASOPHILS % (AUTO) 0.4 % (0-2); EOSINOPHILS % (AUTO) 3.2 % (0-6); HEMATOCRIT 37.7 % (36.0-47.0); HEMOGLOBIN 12.5 g/dL (12.0-15.5); LYMPHOCYTES % (AUTO) 28.5 % (13-45); MEAN CORPUSCULAR HEMOGLOBIN 28.6 pg (27.0-33.4); MEAN CORPUSCULAR HGB CONC 33.2 g/dL (32.0-36.0); MEAN CORPUSCULAR VOLUME 86 fl (80-97); MONOCYTES % (AUTO) 5.2 % (3-13); PLATELET COUNT 352 10^3/uL (150-450); RED BLOOD COUNT 4.38 10^6/uL (3.72-5.28); SEGMENTED NEUTROPHILS % (AUTO) 62.7 % (42-78); TOTAL CELLS COUNTED % (AUTO) 100 %; WHITE BLOOD COUNT 8.1 10^3/uL (4.0-10.5)
[2018-01-10 14:13] LABS: ALANINE AMINOTRANSFERASE 20 U/L (9-52); ALKALINE PHOSPHATASE 80 U/L (38-126); ANION GAP 7 (5-19); ASPARTATE AMINO TRANSFERASE 16 U/L (14-36); BILIRUBIN,DIRECT 0.3 mg/dL (0.0-0.4); BILIRUBIN,TOTAL 0.7 mg/dL (0.2-1.3); BLOOD UREA NITROGEN 11 mg/dL (7-20); CALCIUM 9.7 mg/dL (8.4-10.2); CARBON DIOXIDE 27 mmol/L (22-30); CHLORIDE 106 mmol/L (98-107); GLUCOSE 82 mg/dL (75-110); POTASSIUM 4.4 mmol/L (3.6-5.0); SODIUM 140.3 mmol/L (137-145); TOTAL PROTEIN 7.8 g/dL (6.3-8.2)
--- NOTE | 2018-01-10 14:16 | RADIOLOGY REPORT (SQ) ---
EXAM DESCRIPTION: U/S NON OB PEL TV W/DOPPLER COMPLETED DATE/TIME: 01/10/2018 2:02 pm REASON FOR STUDY: pelvic pain and bleeding COMPARISON: 12/31/2015. TECHNIQUE: Dynamic and static grayscale images acquired of the pelvis via transvaginal approach and recorded on PACS. Additional selected color Doppler and spectral images recorded. LIMITATIONS: None. FINDINGS: UTERUS: Contour normal. No mass. ENDOMETRIAL STRIPE: No focal or generalized thickening. No masses. CERVIX: No nabothian cysts. RIGHT OVARY: No abnormal masses. RIGHT OVARY DOPPLER: Normal arterial vascular flow without evidence for torsion. LEFT OVARY: 2 cm complex cyst containing internal debris. LEFT OVARY DOPPLER: Normal arterial vascular flow without evidence for torsion. FREE FLUID: None noted. OTHER: No other significant finding. MEASUREMENTS: UTERUS: 5.1 x 7.3 x 12.4 cm. ENDOMETRIAL STRIPE: 11 mm. RIGHT OVARY: 1.6 x 1.7 x 3.0 cm. LEFT OVARY: 2.2 x 2.8 x 3.6 cm. IMPRESSION: 2 CM COMPLEX CYST IN LEFT OVARY CONTAINING INTERNAL DEBRIS. POSSIBLY A HEMORRHAGIC CYST . MAY CONSIDER FOLLOWUP ULTRASOUND IN 6 TO 12 WEEKS. NO OTHER SIGNIFICANT FINDINGS. COMMENT: Followup of asymptomatic indeterminate ovarian cysts detected by ultrasound in PREMENOPAUS [place] patients Cyst with findings suggestive of, but not classic for, hemorrhagic cyst, endometrioma or dermoid: *6-12 week followup US; if not a resolving hemorrhagic cyst, continued US or MRI followup; if endomet rioma or dermoid still not confirmed, consider surgical consultation Single thin septation or focal wall calcification: *Same as for benign cyst, based on size Multiple septations: *Consider surgical consultation Nodule in a cyst: *No blood flow in nodule: MRI or surgical consultation *Blood flow in nodule: surgical consultation Note: If cyst is clinically symptomatic or otherwise concerning, other followup may be warranted. Based on recommendations of the Society for Radiologists in Ultrasound Consensus Conference Statement 2010 on management of asymptomatic ovarian and other adnexal cysts imaged at ultrasound. TECHNICAL DOCUMENTATION: JOB ID: [id number] [employer]- All Rights Reserved Reading location - IP/workstation name: [email or web address]
--- NOTE | 2018-01-10 14:50 | ER Document Report ---
ED General - General Chief Complaint: Abdominal Pain Stated Complaint: STOMACH PAIN, BLOOD IN URINE Time Seen by Provider: 01/10/18 11:29 Information source: Patient TRAVEL OUTSIDE OF THE [place] IN LAST 30 DAYS: No - HPI Notes: 27-year-old female recently treated for UTI with Cipro, being evaluated by her [employer] doctor for abdominal pain and hematuria versus persistent vaginal bleeding presents with abdominal pain and bleeding. Vaginal onset since her normal menses which was on the seventh, she now had continued bleeding. Difficult for her to determine whether she has actual hematuria versus contamination with vaginal blood. She describes some intermittent crampy achy pain, bilateral at times but primarily left mid and upper quadrant. She has remote history of ovarian cyst. No unplanned weight loss, no history of malignancy. Achy, crampy at times, nonradiating except as described. No other modifying factors, no other associated symptoms, no other provocative or palliative factors. Patient underwent evaluation in triage with attendant labs and ultrasound ordered. - Related Data Allergies/Adverse Reactions: lidocaine [Lidocaine] Allergy (Verified 01/10/18 10:24) morphine [Morphine] Adverse Reaction (Severe, Verified 01/10/18 10:24) headache Past Medical History - Social History Smoking Status: Never Smoker Chew tobacco use (# tins/day): No Frequency of alcohol use: Occasional Drug Abuse: None Family History: Arthritis, DM, Hyperlipidemia, Hypertension, Malignancy, Thyroid Disfunction Patient has suicidal ideation: No Patient has homicidal ideation: No - Past Medical History Cardiac Medical History: Denies: Hx Hypercholesterolemia, Hx Hypertension Pulmonary Medical History: Denies: Hx Asthma Neurological Medical History: Reports: Hx Migraine Endocrine Medical History: Denies: Hx Diabetes Mellitus Type 1, Hx Diabetes Mellitus Type 2 Renal/ Medical History: Denies: Hx Peritoneal Dialysis GI Medical History: Denies: Hx Gastroesophageal Reflux Disease Musculoskeltal Medical History: Infectious Medical History: Past Surgical History: Reports: Hx Section - x 3, Hx Tubal Ligation - Immunizations Immunizations up to date: Yes Hx Diphtheria, Pertussis, Tetanus Vaccination: Yes - 2010 Review of Systems - Review of Systems Notes: As in history of present illness otherwise negative Physical Exam - Vital signs Vitals: Temp Pulse Resp BP Pulse Ox 99.0 F 87 18 141/92 H 97 01/10/18 10:33 01/10/18 10:33 01/10/18 10:33 01/10/18 10:33 01/10/18 10:33 - Notes Notes: General: Well-developed, well nourished, no acute distress. HEENT: NC/AT, PERRL. No pharyngeal injection. Neck: Supple, no JVD. Chest:Cleart with good air exchange. Cardiac: Regularate and rhythm. no audible murmur. Abdomen:, Nondistended, guarding, rigidity or rebound. There is mild left upper and mid quadrant tenderness. Back: CVAT, unremarkable. Motor: Normal tone and power. Neurologic: Alert, nonfocal. Skin: Rashes petechiae or purpura. Extremeties: Well perfused, no significant edema. Course - Re-evaluation Re-evalutation: Well-appearing 27-year-old female with the after mentioned symptoms. Of note, she is undergoing outpatient workup by her [employer] doctor. Labs reviewed, CBC normal, chemistries are normal. Urinalysis shows mild hematuria without evidence of infection. This is not a catheterized sample. Transvaginal ultrasound had been obtained, shows left-sided ovarian cyst, questionable hemorrhagic component. Patient's been observed throughout her ED course, has benign examination, see no further need for emergent workup. She is appropriate outpatient follow-up, pain be related to atypical referral of pain from her ovarian cyst. She does however understand the need to follow-up with her [employer] doctor to exclude malignancy. With regard to her hematuria, this may be contamination. Patient is given a prescription for tramadol for pain, outpatient follow-up as discussed. - Vital Signs Vital signs: Temp Pulse Resp BP Pulse Ox 99.0 F 87 18 141/92 H 97 01/10/18 10:33 01/10/18 10:33 01/10/18 10:33 01/10/18 10:33 01/10/18 10:33 - Laboratory Result Diagrams: 01/10/18 13:30 01/10/18 13:30 Laboratory results interpreted by me: 01/10/18 12:00 Urine Protein 30 H Urine Ketones 25 H Urine Blood MODERATE H Discharge - Discharge Clinical Impression: Ovarian cyst, Hematuria Condition: Good Disposition: HOME, SELF-CARE Instructions: Abdominal Pain ([facility]), Ovarian Cyst ([facility]), Hematuria ([facility]) Prescriptions: Tramadol HCl 50 mg PO Q1 PRN #14 tablet PRN Reason: Referrals: BULMARO BEAL MD [Primary Care Provider] - Follow up as needed
[2018-01-10 15:05] VITALS: BP 115/77
== END 2018-01-10 15:05 | disposition home or self-care (01) ==
LOC: ER 10:22
DX: N83.202 Unspecified ovarian cyst, left side (principal); R31.9 Hematuria, unspecified; Z88.4 Allergy status to anesthetic agent; I10 Essential (primary) hypertension; Z98.51 Tubal ligation status
CPT/HCPCS: 36415; 76830; 80053; 81001; 81025; 85025; 93976; 99284

== ENCOUNTER 2018-10-06 11:57 | Emergency (ER) | payer MEDICAID ==
[2018-10-06] MEDS ORDERED: ACETAMINOPHEN 325 MG TABLET PO ONE (12:19)
[2018-10-06] MEDS ORDERED: ONDANSETRON 4 MG TAB.RAPDIS PO ONE (12:19)
--- NOTE | 2018-10-06 12:20 | ER Document Report ---
ED Flu Like - General Chief Complaint: Flu Symptoms Stated Complaint: SORE THROAT, HEADACHE Time Seen by Provider: 10/06/18 12:05 Mode of Arrival: Ambulatory Information source: Patient Notes: 28-year-old female presents to ED for complaint of cough cold congestion headache sick to her stomach since yesterday. She states she left work early because she was feeling so bad. She denies having any fevers. She states she has not taken any Tylenol or Motrin for her "hot flash". Patient is alert and oriented respirations regular and unlabored speaking in full sentences walks with a even steady gait. TRAVEL OUTSIDE OF THE [place] IN LAST 30 DAYS: No - HPI Onset: Yesterday Timing/Duration: Intermittent Quality of pain: Achy, Other - Sore throat Severity: Moderate Pain Level: 4 CO exposure: No Associated symptoms: Body/muscle aches, Chills, Nonproductive cough, Rhinnorhea, Sinus pain/drainage, Shortness of breath, Sore throat Similar symptoms previously: Yes Recently seen / treated by doctor: No - Related Data Allergies/Adverse Reactions: lidocaine [Lidocaine] Allergy (Verified 10/06/18 11:58) morphine [Morphine] Adverse Reaction (Severe, Verified 10/06/18 11:58) headache Past Medical History - General Information source: Patient - Social History Smoking Status: Never Smoker Chew tobacco use (# tins/day): No Frequency of alcohol use: Occasional Drug Abuse: None Occupation: [employer] Lives with: Family Family History: Arthritis, DM, Hyperlipidemia, Hypertension, Malignancy, Thyroid Disfunction Patient has suicidal ideation: No Patient has homicidal ideation: No - Past Medical History Cardiac Medical History: Reports: Hx Hypertension - Blood pressure 143/90 today instructed patient to follow-up Pulmonary Medical History: Reports: None EENT Medical History: Reports: None Neurological Medical History: Reports: Hx Migraine Endocrine Medical History: Reports: None Renal/ Medical History: Reports: None Malignancy Medical History: Reports: None GI Medical History: Reports: None Musculoskeletal Medical History: Reports Hx Musculoskeletal Deformity Skin Medical History: Reports None Psychiatric Medical History: Reports: None Traumatic Medical History: Reports: None Infectious Medical History: Reports: None Past Surgical History: Reports: Hx Section - x 3, Hx Tubal Ligation - Immunizations Immunizations up to date: Yes Hx Diphtheria, Pertussis, Tetanus Vaccination: Yes - 2010 Review of Systems - Review of Systems Constitutional: Recent illness EENT: Nose discharge, Sinus pressure, Sinus discharge, Throat pain Cardiovascular: No symptoms reported Respiratory: Cough, Short of breath Gastrointestinal: No symptoms reported Genitourinary: No symptoms reported Female Genitourinary: No symptoms reported Musculoskeletal: No symptoms reported Skin: No symptoms reported Hematologic/Lymphatic: No symptoms reported Neurological/Psychological: Headaches -: Yes All other systems reviewed and negative Physical Exam - Vital signs Vitals: Temp Pulse Resp BP Pulse Ox 98.4 F 96 16 143/90 H 99 10/06/18 12:00 10/06/18 12:00 10/06/18 12:00 10/06/18 12:00 10/06/18 12:00 Interpretation: Normal - General General appearance: Appears well, Alert - HEENT Head: Normocephalic, Atraumatic Eyes: Normal Pupils: PERRL Ears: Normal External canal: Normal Tympanic membrane: Normal Sinus: Normal Nasal: Purulent discharge, Swelling Mouth/Lips: Normal Mucous membranes: Normal Pharynx: Post nasal drainage Neck: Normal - Respiratory Respiratory status: No respiratory distress Chest status: Nontender Breath sounds: Nonproductive cough Chest palpation: Normal - Cardiovascular Rhythm: Regular Heart sounds: Normal auscultation Murmur: No - Abdominal Inspection: Normal Distension: No distension Bowel sounds: Normal Tenderness: Nontender Organomegaly: No organomegaly - Back Back: Normal, Nontender - Extremities General upper extremity: Normal inspection, Nontender, Normal color, Normal ROM, Normal temperature General lower extremity: Normal inspection, Nontender, Normal color, Normal ROM, Normal temperature, Normal weight bearing. No: Shawanda's sign - Neurological Neuro grossly intact: Yes Cognition: Normal Orientation: AAOx4 Dee Coma Scale Eye Opening: Spontaneous [place] Coma Scale Verbal: Oriented [place] Coma Scale Motor: Obeys Commands [place] Coma Scale Total: 15 Speech: Normal Cranial nerves: Normal Cerebellar coordination: Normal Motor strength normal: LUE, RUE, LLE, RLE Babinski reflex: Normal (flexor plantar) Sensory: Normal Biceps - Reflex grade: 2 = Normal Triceps - Reflex grade: 2 = Normal Brachioradialis - Reflex grade: 2 = Normal Knee - Reflex grade: 2 = Normal Ankle - Reflex grade: 2 = Normal - Psychological Associated symptoms: Normal affect, Normal mood - Skin Skin Temperature: Warm Skin Moisture: Dry Skin Color: Normal Course - Re-evaluation Re-evalutation: 10/06/18 20:49 Patient presented to ED with cough cold congestion symptoms. Her assessment is consistent with an upper respiratory infection. Patient was treated with Zofran and Tylenol for her headache. Patient was instructed to follow-up with her primary care doctor for her cold symptoms. After performing a Medical Screening Examination, I estimate there is LOW risk for ACUTE CORONARY SYNDROME, RESPIRATORY FAILURE, SEPSIS OR MENINGITIS, thus I consider the discharge disposition reasonable. I have reevaluated this patient multiple times and no significant life threatening changes are noted. The patient and I have discussed the diagnosis and risks, and we agree with discharging home with close follow- up. We also discussed returning to the Emergency Department immediately if new or worsening symptoms occur. We have discussed the symptoms which are most concerning (e.g., changing or worsening pain, trouble swallowing or breathing, neck stiffness, fever) that necessitate immediate return. - Vital Signs Vital signs: Temp Pulse Resp BP Pulse Ox 97.8 F 96 16 144/93 H 98 10/06/18 14:17 10/06/18 14:17 10/06/18 12:00 10/06/18 14:17 10/06/18 14:17 - Diagnostic Test Radiology reviewed: Image reviewed, Reports reviewed Discharge - Discharge Clinical Impression: URI (upper respiratory infection) Qualifiers: URI type: unspecified URI Qualified Code(s): J06.9 - Acute upper respiratory infection, unspecified Condition: Stable Disposition: HOME, SELF-CARE Additional Instructions: UPPER RESPIRATORY ILLNESS: You have a viral infection of the respiratory passages -- a "cold." This common infection causes nasal congestion, drainage, and often sore throat and cough. It is highly contagious. The disease usually lasts about 10 to 14 days. There is no "cure" for the viral infection -- it must run its course. If there is a complication, such as bacterial infection in the nose, sinuses, midd le ear, or bronchial tubes, antibiotics may be required. The antibiotics won't affect the virus. Drink plenty of fluids. A humidifier may help. An expectorant medication or decongestant may make you more comfortable. Use acetaminophen or ibuprofen for fever or aches. See the doctor if fever persists over two days, if there is any significant worsening of your symptoms, or if you simply fail to improve as expected. COUGH-SUPPRESSANT & EXPECTORANT MEDICATION: You are to use a cough medication as needed for relief of symptoms. This medicine is a combination of an expectorant (to make the mucous thinner and more easily "coughed up") and a cough suppressant (to reduce the frequency of coughing). The cough-suppressant medicine is related to narcotics. You may experience mild nausea and sleepiness. Some patients who are very sensitive to narcotics may have stomach pain from this medicine. Taking the medicine with food reduces these side effects. Do not drive or work with machinery until you know how this medicine affects you. The expectorant should have no side effects. Iodine-containing expectorants (such as organidin) should not be taken by persons with active thyroid disease unless approved by your doctor. Call the doctor if you develop shortness of breath, hives, rash, itching, lightheadedness, or severe nausea and vomiting. USE OF ACETAMINOPHEN (Tylenol): Acetaminophen may be taken for pain relief or fever control. It's much safer than aspirin, offering a wider range of "safe" dosages. It is safe during . Some brand names are Tylenol, Panadol, Datril, Anacin 3, Tempra, and Liquiprin. Acetaminophen can be repeated every four hours. The following are maximum recommended dosages: >89 pounds or adults 650 mg to 900 mg Acetaminophen can be repeated every four hours. Maximum dose not to exceed 4000 mg a day. Antinausea Medication You have been given a medication to suppress nausea and vomiting. This type of medication can be given as a shot, pill, or suppository. It will usually last for many hours. Pills and shots usually last six to eight hours, suppositories last about 12 hours. For the typical illness, only one or two doses of the medication may be necessary. Mild lightheadedness may occur. This type of medicine can cause drowsiness. Do not drive or operate dangerous machinery while under its influence. Do not mix with alcohol. See your doctor at once if you have muscle spasms or tightness, or uncontrollable motions (particularly of the neck, mouth, or jaw). Persistent vomiting or severe lightheadedness should also be evaluated by the physician. FOLLOW-UP CARE: If you have been referred to a physician for follow-up care, call the physicians office for an appointment as you were instructed or within the next two days. If you experience worsening or a significant change in your symptoms, notify the physician immediately or return to the Emergency Department at any time for re-evaluation. Prescriptions: Ondansetron [Zofran Odt 4 mg Tablet] 1 tab PO Q6H #15 tab.rapdis Forms: Elevated Blood Pressure, Return to Work Referrals: BULMARO BEAL MD [NO LOCAL MD] - Follow up as needed
--- NOTE | 2018-10-06 12:51 | RADIOLOGY REPORT (SQ) ---
EXAM DESCRIPTION: CHEST 2 VIEWS COMPLETED DATE/TIME: 10/06/2018 12:43 pm REASON FOR STUDY: cough congestion COMPARISON: 10/24/2014 . EXAM PARAMETERS: NUMBER OF VIEWS: two views TECHNIQUE: Digital Frontal and Lateral radiographic views of the chest acquired. RADIATION DOSE: NA LIMITATIONS: none FINDINGS: LUNGS AND PLEURA: No opacities, masses or pneumothorax. No pleural effusion. MEDIASTINUM AND HILAR STRUCTURES: No masses or contour abnormalities. HEART AND VASCULAR STRUCTURES: Heart normal size. No evidence for failure. BONES: No acute findings. HARDWARE: None in the chest. OTHER: No other significant finding. IMPRESSION: NO ACUTE RADIOGRAPHIC FINDING IN THE CHEST. TECHNICAL DOCUMENTATION: JOB ID: [id number] [employer]- All Rights Reserved Reading location - IP/workstation name: [email or web address]
[2018-10-06 13:38] LABS: A TYPE INFLUENZA AG NEGATIVE (NEGATIVE); B INFLUENZA AG NEGATIVE (NEGATIVE)
[2018-10-06 14:19] VITALS: BP 144/93
== END 2018-10-06 14:25 | disposition home or self-care (01) ==
LOC: ER 11:57
DX: J06.9 Acute upper respiratory infection, unspecified (principal); J02.9 Acute pharyngitis, unspecified; R51 Headache; R05 Cough; R09.81 Nasal congestion; M79.10 Myalgia, unspecified site; J34.89 Other specified disorders of nose and nasal sinuses; R06.02 Shortness of breath; I10 Essential (primary) hypertension
CPT/HCPCS: 99283; 87070; 87880; 87077; 87804; 71046; J3490; S0119

== ENCOUNTER 2018-12-10 22:42 | Emergency (ER) | payer MEDICAID ==
[2018-12-10 23:31] LABS: APPEARANCE,URINE SLIGHTLY-CLOUDY; BILIRUBIN,URINE NEGATIVE (NEGATIVE); COLOR,URINE YELLOW; GLUCOSE, URINE NEGATIVE (NEGATIVE); KETONES,URINE NEGATIVE (NEGATIVE); LEUKOCYTE ESTERASE,URINE NEGATIVE (NEGATIVE); NITRITE,URINE NEGATIVE (NEGATIVE); PROTEIN,URINE NEGATIVE (NEGATIVE); URINE SPECIFIC GRAVITY 1.017; UROBILINOGEN,URINE NEGATIVE mg/dL (<2.0)
[2018-12-11 00:54] LABS: ABSOLUTE EOSINOPHILS # (AUTO) 0.3 10^3/uL (0.0-0.6); ABSOLUTE LYMPHOCYTES (AUTO) 3.9 10^3/uL (0.5-4.7); ABSOLUTE MONOCYTES (AUTO) 0.7 10^3/uL (0.1-1.4); ABSOLUTE NEUT (AUTO) 4.6 10^3/uL (1.7-8.2); BASOPHILS % (AUTO) 0.5 % (0-2); EOSINOPHILS % (AUTO) 3.3 % (0-6); HEMOGLOBIN 12.4 g/dL (12.0-15.5); LYMPHOCYTES % (AUTO) 40.7 % (13-45); MEAN CORPUSCULAR HEMOGLOBIN 28.3 pg (27.0-33.4); MEAN CORPUSCULAR HGB CONC 33.4 g/dL (32.0-36.0); MEAN CORPUSCULAR VOLUME 85 fl (80-97); MONOCYTES % (AUTO) 7.5 % (3-13); PLATELET COUNT 363 10^3/uL (150-450); RED BLOOD COUNT 4.36 10^6/uL (3.72-5.28); RED CELL DISTRIBUTION WIDTH 14.4 % (11.5-14.0); TOTAL CELLS COUNTED % (AUTO) 100 %; WHITE BLOOD COUNT 9.6 10^3/uL (4.0-10.5)
[2018-12-11 01:11] LABS: ALANINE AMINOTRANSFERASE 21 U/L (9-52); ALKALINE PHOSPHATASE 86 U/L (38-126); ANION GAP 9 (5-19); ASPARTATE AMINO TRANSFERASE 16 U/L (14-36); BILIRUBIN,DIRECT 0.2 mg/dL (0.0-0.4); BILIRUBIN,TOTAL 0.5 mg/dL (0.2-1.3); BLOOD UREA NITROGEN 8 mg/dL (7-20); CALCIUM 10.1 mg/dL (8.4-10.2); CARBON DIOXIDE 27 mmol/L (22-30); CHLORIDE 103 mmol/L (98-107); GLUCOSE 97 mg/dL (75-110); LIPASE 45.1 U/L (23-300); POTASSIUM 4.4 mmol/L (3.6-5.0); SODIUM 138.6 mmol/L (137-145); TOTAL PROTEIN 7.5 g/dL (6.3-8.2)
[2018-12-11] MEDS ORDERED: KETOROLAC TROMETHAMINE 60 MG/2 ML SDV IM ONE (01:16)
[2018-12-11] MEDS ORDERED: HYDROCODONE/ACETAMINOPHEN 5-325 MG (6 TAB/ER DISP) PO PRN (01:17)
[2018-12-11] MEDS ORDERED: SULFAMETHOXAZOLE/TRIMETHOPRIM 800-160 MG TABLET PO ONE (01:17)
--- NOTE | 2018-12-11 01:18 | ER Document Report ---
ED General - General Chief Complaint: Urinary Frequency Stated Complaint: FLANK PAIN Time Seen by Provider: 12/11/18 00:09 Notes: 28-year-old female patient emergency department for evaluation of low back pain. Also states that she is having frequency of urination. Patient states that "I have a urinary tract infection". Patient requesting something for the pain. Denies any fever, chills, sweats. Denies any nausea or vomiting. Hurts in the lower right back and radiates nowhere. TRAVEL OUTSIDE OF THE [place] IN LAST 30 DAYS: No - HPI Onset: Yesterday Onset/Duration: Gradual Quality of pain: Sharp Severity: Moderate Pain Level: 3 Associated symptoms: None - Related Data Allergies/Adverse Reactions: lidocaine [Lidocaine] Allergy (Verified 10/06/18 11:58) morphine [Morphine] Adverse Reaction (Severe, Verified 10/06/18 11:58) headache Past Medical History - General Information source: Patient - Social History Smoking Status: Unknown if Ever Smoked Frequency of alcohol use: None Drug Abuse: None Lives with: Family Family History: Arthritis, DM, Hyperlipidemia, Hypertension, Malignancy, Thyroid Disfunction - Past Medical History Cardiac Medical History: Reports: Hx Hypertension - Blood pressure 143/90 today instructed patient to follow-up Denies: Hx Hypercholesterolemia Pulmonary Medical History: Denies: Hx Asthma Neurological Medical History: Reports: Hx Migraine Endocrine Medical History: Denies: Hx Diabetes Mellitus Type 1, Hx Diabetes Mellitus Type 2 Renal/ Medical History: Denies: Hx Peritoneal Dialysis GI Medical History: Denies: Hx Gastroesophageal Reflux Disease Musculoskeletal Medical History: Reports Hx Musculoskeletal Deformity Infectious Medical History: Past Surgical History: Reports: Hx Section - x 3, Hx Tubal Ligation - Immunizations Immunizations up to date: Yes Hx Diphtheria, Pertussis, Tetanus Vaccination: Yes - 2010 Review of Systems - Review of Systems Notes: Constitutional: denies: Chills, Diaphoresis, Fever, Malaise, Weakness EENT: denies: Eye discharge, Blurred vision, Tearing, Double vision, Nose congestion, Nose discharge, Throat swelling, Mouth pain Cardiovascular: denies: Palpitations, Heart racing, Orthopnea, Dyspnea, Chest pain Respiratory: denies: Cough, Hurts to breathe, Wheezing, Shortness of breath Gastrointestinal: denies: Abdominal pain, Diarrhea, Nausea, Vomiting, Black stools, bright red blood in stool Genitourinary: Complaining of right flank pain, dysuria, frequency of urination Musculoskeletal: denies: Joint pain, Joint swelling, Muscle pain, Muscle stiff ness, +back pain Hematologic/Lymphatic: denies: Anemia, Easy bleeding, Easy bruising, Blood clots Neurological/Psychological: denies: Confusion, Dementia, Depression, Loss of consciousness Skin: No lesions, no masses, no skin breakdown, no abscesses Physical Exam - Vital signs Vitals: Temp Pulse Resp BP Pulse Ox 98.6 F 97 18 145/103 H 97 12/10/18 22:48 12/10/18 22:48 12/10/18 22:48 12/10/18 22:48 12/10/18 22:48 Interpretation: Normal - General General appearance: Appears well, Alert - HEENT Head: Normocephalic, Atraumatic Eyes: Normal Pupils: PERRL - Respiratory Respiratory status: No respiratory distress Chest status: Nontender Breath sounds: Normal Chest palpation: Normal - Cardiovascular Rhythm: Regular Heart sounds: Normal auscultation Murmur: No - Abdominal Inspection: Normal Distension: No distension Bowel sounds: Normal Tenderness: Nontender Organomegaly: No organomegaly - Back Back: Normal, Tender - Mild tenderness to palpation in the right lumbar paraspinal area. Definitely reproducible. No flank tenderness. - Extremities General upper extremity: Normal inspection, Nontender, Normal color, Normal ROM, Normal temperature General lower extremity: Normal inspection, Nontender, Normal color, Normal ROM, Normal temperature, Normal weight bearing. No: Shawanda's sign - Neurological Neuro grossly intact: Yes Cognition: Normal Orientation: AAOx4 [place] Coma Scale Eye Opening: Spontaneous [place] Coma Scale Verbal: Oriented [place] Coma Scale Motor: Obeys Commands [place] Coma Scale Total: 15 Speech: Normal Motor strength normal: LUE, RUE, LLE, RLE Sensory: Normal - Psychological Associated symptoms: Normal affect, Normal mood - Skin Skin Temperature: Warm Skin Moisture: Dry Skin Color: Normal Course - Re-evaluation Re-evalutation: 12/11/18 01:33 Laboratory 12/10/18 12/11/18 12/11/18 23:05 00:40 00:40 WBC 9.6 RBC 4.36 Hgb 12.4 Hct 37.0 MCV 85 MCH 28.3 MCHC 33.4 RDW 14.4 H Plt Count 363 Seg Neutrophils % 48.0 Lymphocytes % 40.7 Monocytes % 7.5 Eosinophils % 3.3 Basophils % 0.5 Absolute Neutrophils 4.6 Absolute Lymphocytes 3.9 Absolute Monocytes 0.7 Absolute Eosinophils 0.3 Absolute Basophils 0.0 Sodium 138.6 Potassium 4.4 Chloride 103 Carbon Dioxide 27 Anion Gap 9 BUN 8 Creatinine 0.68 Est GFR ( Amer) > 60 Est GFR (Non-Af Amer) > 60 Glucose 97 Calcium 10.1 Total Bilirubin 0.5 Direct Bilirubin 0.2 Neonat Total Bilirubin Not Reportable Neonat Direct Bilirubin Not Reportable Neonat Indirect Bili Not Reportable AST 16 ALT 21 Alkaline Phosphatase 86 Total Protein 7.5 Albumin 4.0 Lipase 45.1 Serum HCG, Qual Urine Color YELLOW Urine Appearance SLIGHTLY-CLOUDY Urine pH 6.0 Ur Specific [place] 1.017 Urine Protein NEGATIVE Urine Glucose (UA) NEGATIVE Urine Ketones NEGATIVE Urine Blood MODERATE H Urine Nitrite NEGATIVE Urine Bilirubin NEGATIVE Urine Urobilinogen NEGATIVE Ur Leukocyte Esterase NEGATIVE Urine WBC (Auto) 1 Urine RBC (Auto) 4 Squamous Epi Cells Auto 4 Urine Mucus (Auto) RARE Urine Ascorbic Acid NEGATIVE 12/11/18 00:40 WBC RBC Hgb Hct MCV MCH MCHC RDW Plt Count Seg Neutrophils % Lymphocytes % Monocytes % Eosinophils % Basophils % Absolute Neutrophils Absolute Lymphocytes Absolute Monocytes Absolute Eosinophils Absolute Basophils Sodium Potassium Chloride Carbon Dioxide Anion Gap BUN Creatinine Est GFR ( Amer) Est GFR (Non-Af Amer) Glucose Calcium Total Bilirubin Direct Bilirubin Neonat Total Bilirubin Neonat Direct Bilirubin Neonat Indirect Bili AST ALT Alkaline Phosphatase Total Protein Albumin Lipase Serum HCG, Qual NEGATIVE Urine Color Urine Appearance Urine pH Ur Specific [place] Urine Protein Urine Glucose (UA) Urine Ketones Urine Blood Urine Nitrite Urine Bilirubin Urine Urobilinogen Ur Leukocyte Esterase Urine WBC (Auto) Urine RBC (Auto) Squamous Epi Cells Auto Urine Mucus (Auto) Urine Ascorbic Acid No significant abnormality seen. Small amount of blood. Patient states that she is quite confident that this is a urinary tract infection but I am not convinced. At this time I am going to treat her more is low back pain but will give her an antibiotic just to be safe. Will DC at this time. - Vital Signs Vital signs: Temp Pulse Resp BP Pulse Ox 98.6 F 97 18 145/103 H 97 12/10/18 22:48 12/10/18 22:48 12/10/18 22:48 12/10/18 22:48 12/10/18 22:48 - Laboratory Result Diagrams: 12/11/18 00:40 12/11/18 00:40 Laboratory results interpreted by me: 12/10/18 12/11/18 23:05 00:40 RDW 14.4 H Urine Blood MODERATE H Discharge - Discharge Clinical Impression: Low back pain Qualifiers: Chronicity: acute Back pain laterality: right Sciatica presence: without sciatica Qualified Code(s): M54.5 - Low back pain Urinary tract infection Qualifiers: Urinary tract infection type: site unspecified Hematuria presence: without hematuria Qualified Code(s): N39.0 - Urinary tract infection, site not specified Condition: Good Disposition: HOME, SELF-CARE Instructions: Trimethoprim-Sulfa ([facility]), Urinary Tract Infection ([facility]), Low Back Pain ([facility]) Additional Instructions: In the event that you develop any worsening back pain, loss of function of your lower extremities, numbness in the crotch area, loss of bowel function where you defecate without wanting to or inability to urinate and then please return immediately. Follow-up with your regular doctor for further testing. Prescriptions: Ketorolac Tromethamine [Toradol 10 mg Tablet] 10 mg PO Q6HP PRN 5 Days #20 tablet PRN Reason: Sulfamethoxazole/Trimethoprim [Bactrim Ds Tablet] 1 each PO BID 3 Days #6 tablet
[2018-12-11 01:58] VITALS: BP 141/88
== END 2018-12-11 02:20 | disposition home or self-care (01) ==
LOC: ER 22:42
DX: N39.0 Urinary tract infection, site not specified (principal); M54.5 Low back pain; Z98.51 Tubal ligation status; Z88.6 Allergy status to analgesic agent
CPT/HCPCS: 99283; 96372; 36415; 83690; 84703; 85025; 80053; 81001; J1885; J3490

== ENCOUNTER 2019-02-12 10:32 | Emergency (ER) | payer MEDICAID ==
[2019-02-12 10:54] VITALS: BP 148/99
[2019-02-12] MEDS ORDERED: TETRACAINE HCL 0.5% OPH SOLN 4 ML OU ONE (11:09)
[2019-02-12] MEDS ORDERED: POLYMYXIN B SULFATE/TMP OPH SOLN (10 ML/ER DISP) OD PRN (11:36)
--- NOTE | 2019-02-12 11:45 | ER Document Report ---
HPI - HPI Time Seen by Provider: 02/12/19 10:57 Pain Level: 5 Notes: Patient is a 28-year-old female presenting to the emergency department with the sensation of a foreign body in her left eye. Patient reports that she woke up at 5:00 this morning with pain in the eye and states that it feels like there is something in her eye under the upper lid. Patient denies any trauma to the area. She does not recontact lenses or corrective lenses. - CONSTITUTIONAL Constitutional: DENIES: Fever, Chills - EENT EENT: REPORTS: Eye problems - REPRODUCTIVE Reproductive: DENIES: : Past Medical History - General Information source: Patient - Social History Smoking Status: Never Smoker Frequency of alcohol use: None Drug Abuse: None Family History: Arthritis, DM, Hyperlipidemia, Hypertension, Malignancy, Thyroid Disfunction Patient has suicidal ideation: No Patient has homicidal ideation: No - Past Medical History Cardiac Medical History: Reports: Hx Hypertension - Blood pressure 143/90 today instructed patient to follow-up Denies: Hx Hypercholesterolemia Pulmonary Medical History: Denies: Hx Asthma Neurological Medical History: Reports: Hx Migraine Endocrine Medical History: Denies: Hx Diabetes Mellitus Type 1, Hx Diabetes Mellitus Type 2 Renal/ Medical History: Denies: Hx Peritoneal Dialysis GI Medical History: Denies: Hx Gastroesophageal Reflux Disease Musculoskeletal Medical History: Reports Hx Musculoskeletal Deformity Infectious Medical History: Past Surgical History: Reports: Hx Section - x 3, Hx Tubal Ligation - Immunizations Immunizations up to date: Yes Hx Diphtheria, Pertussis, Tetanus Vaccination: Yes - 2010 Vertical Provider Document - CONSTITUTIONAL Notes: PHYSICAL EXAMINATION: GENERAL: Well-appearing, well-nourished and in no acute distress. HEAD: Atraumatic, normocephalic. EYES: Pupils equal round extraocular movements intact, conjunctiva are normal. No evidence of foreign body. ENT: Nares patent NECK: Normal range of motion LUNGS: No respiratory distress Musculoskeletal: Normal range of motion NEUROLOGICAL: Normal speech, normal gait. PSYCH: Normal mood, normal affect. SKIN: Warm, Dry, normal turgor, no rashes or lesions noted. - INFECTION CONTROL TRAVEL OUTSIDE OF THE [place] IN LAST 30 DAYS: No Course - Re-evaluation Re-evalutation: Eye exam was performed, no uptake of fluorescein stain was noted. No evidence of corneal abrasion, no evidence of foreign body. A second provider did come to the room, Enrico Myles NP and also performed the same eye exam as a second check. Patient does report improvement of pain after administration of the tetracaine drop. Patient states vision is normal, no blurred vision. Both providers agree there is no evidence of foreign body. Patient will be placed on antibiotic eyedrops and will follow up with ophthalmology. - Vital Signs Vital signs: Temp Pulse Resp BP Pulse Ox 98.2 F 92 18 148/99 H 97 02/12/19 10:53 02/12/19 10:53 02/12/19 10:53 02/12/19 10:53 02/12/19 10:53 Discharge - Discharge Clinical Impression: Foreign body sensation in left eye Eye pain Qualifiers: Laterality: left Qualified Code(s): H57.12 - Ocular pain, left eye Condition: Stable Disposition: HOME, SELF-CARE Additional Instructions: Please use antibiotic drops as discussed. We did not see anything abnormal on your eye exam today. If your eye does not significantly get better over the next several hours please call [facility] to schedule a follow-up appointment. Let them know you were seen in the emergency department. Return to the emergency department for any new or worsening symptoms. Referrals: JARON EPPERSON MD [ACTIVE STAFF] - Follow up as needed
== END 2019-02-12 11:53 | disposition home or self-care (01) ==
LOC: ER 10:32
DX: H57.12 Ocular pain, left eye (principal); X58.XXXA Exposure to other specified factors, initial encounter; I10 Essential (primary) hypertension
CPT/HCPCS: 99283; J3490 ×2

== ENCOUNTER 2019-04-30 18:37 | Emergency (ER) | payer MEDICAID ==
[2019-04-30 18:43] VITALS: BP 139/93
--- NOTE | 2019-04-30 19:40 | ER Document Report ---
HPI - HPI Time Seen by Provider: 04/30/19 19:16 Onset: Other - x3 Quality of pain: Sharp Pain Level: 4 Associated Symptoms: Chills, Earache, Sore throat Exacerbated by: Denies Relieved by: Denies Similar symptoms previously: No Recently seen / treated by doctor: No Notes: No fever and chills. eating/drinking without issues. reports white exudates to tonsils. no rashes. small kids with sore throat. no abd pain, n/v/d. - CONSTITUTIONAL Constitutional: REPORTS: Fever - EENT EENT: REPORTS: Sore Throat. DENIES: Ear Pain, Nasal Drainage-Clear, Nasal Drainage-Purulent, Congestion, Eye problems - NEURO Neurology: REPORTS: Headache - CARDIOVASCULAR Cardiovascular: DENIES: Chest pain - RESPIRATORY Respiratory: DENIES: Trouble Breathing, Coughing - GASTROINTESTINAL Gastrointestinal: DENIES: Abdominal Pain, Nausea, Patient vomiting, Diarrhea, Constipation - URINARY Urinary: DENIES: Dysuria, Urgency, Frequency - REPRODUCTIVE Reproductive: DENIES: : Past Medical History - General Information source: Patient - Social History Smoking Status: Unknown if Ever Smoked Family History: Arthritis, DM, Hyperlipidemia, Hypertension, Malignancy, Thyroid Disfunction - Past Medical History Cardiac Medical History: Reports: Hx Hypertension - Blood pressure 143/90 today instructed patient to follow-up Denies: Hx Hypercholesterolemia Pulmonary Medical History: Denies: Hx Asthma Neurological Medical History: Reports: Hx Migraine Endocrine Medical History: Denies: Hx Diabetes Mellitus Type 1, Hx Diabetes Mellitus Type 2 Renal/ Medical History: Denies: Hx Peritoneal Dialysis GI Medical History: Denies: Hx Gastroesophageal Reflux Disease Musculoskeletal Medical History: Reports Hx Musculoskeletal Deformity Infectious Medical History: Past Surgical History: Reports: Hx Section - x 3, Hx Tubal Ligation - Immunizations Immunizations up to date: Yes Hx Diphtheria, Pertussis, Tetanus Vaccination: Yes - 2010 Vertical Provider Document - CONSTITUTIONAL Agree With Documented VS: Yes - INFECTION CONTROL TRAVEL OUTSIDE OF THE [place] IN LAST 30 DAYS: No Course - Re-evaluation Re-evalutation: 04/30/19 19:50 VSS, nurses note reviewed. Presentation of several days of sore throat in an oth erwise well-appearing patient. History and exam are not consistent with a retropharyngeal abscess or peritonsillar abscess. Airway is patent. No difficulty handling oral secretions. Vitals within normal limits. Patient has been treated with an IM dose of penicillin. At this time will discharge with return precautions and follow-up recommendations. Verbal discharge instructions given a the bedside and opportunity for questions given. Medication warnings reviewed. Patient is in agreement with this plan and has verbalized understanding of return precautions and the need for primary care follow-up in the next 2-3 days or sooner if needed - Vital Signs Vital signs: Temp Pulse Resp BP Pulse Ox 98.5 F 100 20 139/93 H 98 04/30/19 18:42 04/30/19 18:42 04/30/19 18:42 04/30/19 18:42 04/30/19 18:42 Discharge - Discharge Clinical Impression: Exudative pharyngitis Condition: Stable Disposition: HOME, SELF-CARE Instructions: Penicillin V K ([facility]), Sore Throat ([facility]), Strep Throat ([facility]) Additional Instructions: SORE THROAT: Sore throats may be caused by viruses, bacteria, or fungi. Most are due to a virus, and must get better on their own. Bacterial sore throats, particularly those due to "strep," need treatment with antibiotics. If an antibiotic is prescribed, be sure to take the medication for a full 10 days. Failure to take the antibiotic can result in complications such as rheumatic fever. Sometimes, an injection of antibiotics is given instead of pills or liquid. This single "shot" is equal in effectiveness to the oral medication. To relieve symptoms, take acetaminophen for pain. Sip clear liquids frequently, or eat popsicles or ice chips. Anesthetic sprays or lozenges may help. Make sure the air in the room is not too dry. Avoid using decongestants or antihistamines. Call the doctor if there is no improvement in two days, or if you have difficulty breathing, increasing throat pain, high fever, rash, or frequent vomiting. STREP THROAT: Your sore throat is due to the streptococcus germ (strep throat). Strep throat usually makes you feel quite ill with fever and aches, headache, swollen sore throat, and tender bumps under the angles of the jaw. Strep throat requires antibiotic treatment. Although the sore throat may go away by itself, complications such as rheumatic fever, kidney disease, or throat abscess can occur. We usually prescribe antibiotics by mouth. Be sure to take the medicine until it's gone. If you stop early, the strep may come back. If you are vomiting, are severely ill, or can't remember to take pills, we can give you an antibiotic shot. Take acetaminophen or ibuprofen for pain and fever. Sip frequent clear liquids, or use popsicles or ice chips. Anesthetic sprays or lozenges may help. Make sure the air in the room is not too dry. Avoid using decongestants or antihistamines. Call the doctor if there is no improvement in three days, or if you have difficulty breathing, increasing throat pain, high fever, rash, or frequent vomiting. STEROID MEDICATION: You have been given a medicine of the cortisone/steroid class. This medication is used to control inflammation or allergy. It is usually only given for a short period of time, until the acute process subsides. There are usually no side effects from short-term use of cortisone-like medications. Some persons feel an increased sense of well-being and are not sleepy at bedtime. Long-term use of cortisone medications is best avoided, unless required for a severe condition. If your condition does not remit, or relapses after the course of corticosteroid medication, you should consult your physician. FOLLOW-UP CARE: If you have been referred to a physician for follow-up care, call the physicians office for an appointment as you were instructed or within the next two days. If you experience worsening or a significant change in your symptoms, notify the physician immediately or return to the Emergency Department at any time for re-evaluation. Prescriptions: RX: Amoxicillin Trihydrate [Amoxil 875 mg Tablet] 1 tab PO BID #20 tablet RX: Prednisone [Deltasone 20 mg Tablet] 20 mg PO BID #10 tablet Referrals: BRI NUÑEZ MD [ACTIVE STAFF] - Follow up as needed
== END 2019-04-30 19:59 | disposition home or self-care (01) ==
LOC: ER 18:37
DX: J02.9 Acute pharyngitis, unspecified (principal); Z98.51 Tubal ligation status
CPT/HCPCS: 87070; 87880; 99283

== ENCOUNTER 2019-09-15 17:12 | Emergency (ER) | payer MEDICAID ==
[2019-09-15] MEDS ORDERED: DIPHENHYDRAMINE HCL 50 MG/ML VIAL IV ONE (18:11)
[2019-09-15] MEDS ORDERED: KETOROLAC TROMETHAMINE INJ/PF 30 MG/1 ML SDV IV ONE (18:11)
[2019-09-15] MEDS ORDERED: NORMAL SALINE 1000 ML 1,000 ML IV ONE (18:11)
[2019-09-15] MEDS ORDERED: PROCHLORPERAZINE EDISYLATE INJ 10 MG/2 ML VIAL IV ONE (18:11)
--- NOTE | 2019-09-15 18:13 | ER Document Report ---
ED Medical Screen (RME) - General Chief Complaint: Headache Stated Complaint: HEADACHE,STOMACH PAIN,WEAKNESS Time Seen by Provider: 09/15/19 18:05 Mode of Arrival: Ambulatory Information source: Patient Notes: Patient presents complaining of headache pain that started yesterday. Patient states that she has had fatigue and nausea for the past 4 days. Patient does report light sensitivity. No fever no vomiting. Patient does report recent travel out of the country returning last week from [place]. I have greeted and performed a rapid initial assessment of this patient. A comprehensive ED assessment and evaluation of the patient, analysis of test results and completion of the medical decision making process will be conducted by additional ED providers. TRAVEL OUTSIDE OF THE [place] IN LAST 30 DAYS: Yes COUNTRY TRAVELED TO/FROM: [place] - Related Data Allergies/Adverse Reactions: lidocaine [Lidocaine] Allergy (Verified 04/30/19 18:38) morphine [Morphine] Adverse Reaction (Severe, Verified 04/30/19 18:38) headache Past Medical History - Past Medical History Cardiac Medical History: Reports: Hx Hypertension - Blood pressure 143/90 today instructed patient to follow-up Denies: Hx Hypercholesterolemia Pulmonary Medical History: Denies: Hx Asthma Neurological Medical History: Reports: Hx Migraine Endocrine Medical History: Denies: Hx Diabetes Mellitus Type 1, Hx Diabetes Mellitus Type 2 Renal/ Medical History: Denies: Hx Peritoneal Dialysis GI Medical History: Denies: Hx Gastroesophageal Reflux Disease Musculoskeltal Medical History: Reports Hx Musculoskeletal Deformity Infectious Medical History: Past Surgical History: Reports: Hx Section - x 3, Hx Tubal Ligation - Immunizations Immunizations up to date: Yes Hx Diphtheria, Pertussis, Tetanus Vaccination: Yes - 2010 Physical Exam - Vital signs Vitals: Temp Pulse Resp BP Pulse Ox 98.2 F 100 20 159/122 H 100 09/15/19 17:19 09/15/19 17:19 09/15/19 17:19 09/15/19 17:19 09/15/19 17:19 - Neurological Neuro grossly intact: Yes Cognition: Normal [place] Coma Scale Eye Opening: Spontaneous [place] Coma Scale Verbal: Oriented [place] Coma Scale Motor: Obeys Commands Dee Coma Scale Total: 15 Course - Vital Signs Vital signs: Temp Pulse Resp BP Pulse Ox 98.2 F 100 20 159/122 H 100 09/15/19 17:19 09/15/19 17:19 09/15/19 17:19 09/15/19 17:19 09/15/19 17:19
--- NOTE | 2019-09-15 18:34 | ER Document Report ---
ED Headache - General Chief Complaint: Headache Stated Complaint: HEADACHE,STOMACH PAIN,WEAKNESS Time Seen by Provider: 09/15/19 18:05 Mode of Arrival: Ambulatory Notes: Patient is a 32-year-old female presents the emergency department with a chief complaint of a headache. Patient states that she has had history of migraines before and she states that this feels like when she has had a migraine headache before. Patient states the headache is in the front of her head. Denies any loss of consciousness, numbness, tingling, or any other symptoms at this time. TRAVEL OUTSIDE OF THE [place] IN LAST 30 DAYS: Yes - Related Data Allergies/Adverse Reactions: lidocaine [Lidocaine] Allergy (Verified 04/30/19 18:38) morphine [Morphine] Adverse Reaction (Severe, Verified 04/30/19 18:38) headache Past Medical History - General Information source: Patient - Social History Smoking Status: Unknown if Ever Smoked Family History: Arthritis, DM, Hyperlipidemia, Hypertension, Malignancy, Thyroid Disfunction Patient has suicidal ideation: No Patient has homicidal ideation: No - Past Medical History Cardiac Medical History: Reports: Hx Hypertension - Blood pressure 143/90 today instructed patient to follow-up Denies: Hx Hypercholesterolemia Pulmonary Medical History: Denies: Hx Asthma Neurological Medical History: Reports: Hx Migraine Endocrine Medical History: Denies: Hx Diabetes Mellitus Type 1, Hx Diabetes Mellitus Type 2 Renal/ Medical History: Denies: Hx Peritoneal Dialysis GI Medical History: Denies: Hx Gastroesophageal Reflux Disease Musculoskeletal Medical History: Reports Hx Musculoskeletal Deformity Infectious Medical History: Past Surgical History: Reports: Hx Section - x 3, Hx Tubal Ligation - Immunizations Immunizations up to date: Yes Hx Diphtheria, Pertussis, Tetanus Vaccination: Yes - 2010 Review of Systems - Review of Systems Notes: REVIEW OF SYSTEMS: CONSTITUTIONAL : Denies recent illness. Denies recent unintentional weight loss. Denies fever, chills, or sweats. EENT: Denies eye, ear, throat, or mouth pain, discharge, or symptoms. Denies nasal or sinus congestion. CARDIOVASCULAR: Denies chest pain. RESPIRATORY: Denies shortness of breath, cough, congestion, difficulty breathing, or wheezing. GASTROINTESTINAL: Denies nausea, vomiting, and diarrhea. Denies abdominal pain. Denies constipation. GENITOURINARY: Denies difficulty urinating, burning, blood in urine, urgency or frequency. MUSCULOSKELETAL: Denies neck and back pain. Denies joint pain or swelling. SKIN: Denies rash, itchiness, or lesions HEMATOLOGIC : Denies easy bruising or bleeding. LYMPHATIC: Denies swollen, painful, enlarged glands. NEUROLOGICAL: See HPI. PSYCHIATRIC: Denies stress, anxiety, alteration in sleep patterns, or depression. All other systems reviewed and negative. Physical Exam - Vital signs Vitals: Temp Pulse Resp BP Pulse Ox 98.2 F 100 20 159/122 H 100 09/15/19 17:19 09/15/19 17:19 09/15/19 17:19 09/15/19 17:19 09/15/19 17:19 - Notes Notes: PHYSICAL EXAMINATION: GENERAL: Appears well, healthy, well-nourished, no acute distress. HEAD: Normocephalic, atraumatic. EYES: PERRL, conjunctiva normal, all extraocular movements intact, sclera nonicteric ENT: Moist mucous membranes. NECK: Supple, no noticeable swelling, redness, rash. Normal range of motion. LUNGS: Equal breath sounds bilaterally and clear to auscultation. No wheezes rales or rhonchi. CARDIOVASCULAR: S1-S2, regular rate, regular rhythm. Radial pulses 2+, normal. ABDOMEN: Normoactive bowel sounds. Soft, nontender, no guarding, no rebound tenderness, and no masses palpated. EXTREMITIES: Normal strength and range of motion, no pitting or edema. No cyanosis. NEUROLOGICAL: Moves all extremities upon command. Strength 5/5 in all extremities. PSYCH: Normal mood, normal affect. SKIN: Warm, dry. No rash, lesions, ulcerations noted. Normal skin turgor. Course - Re-evaluation Re-evalutation: 09/15/19 19:54 Patient states that she has complete resolution of her migraine. She states that she feels better and has no symptoms anymore. I have a very low suspicion for intracranial hemorrhage, or any life-threatening etiology at this time. Patient is able to move all extremities with no difficulty. No neurological deficits noted. She will follow-up with her primary care provider in regards to this visit. Follow-up precautions were given. Verbal discharge instructions were given to the patient. They verbalized understanding. They are stable for discharge. - Vital Signs Vital signs: Temp Pulse Resp BP Pulse Ox 98 F 70 18 128/93 H 97 09/15/19 20:01 09/15/19 20:01 09/15/19 20:01 09/15/19 20:01 09/15/19 20:01 Discharge - Discharge Clinical Impression: Headache Qualifiers: Headache type: unspecified Headache chronicity pattern: acute headache Intractability: intractable Qualified Code(s): R51 - Headache Condition: Good Disposition: HOME, SELF-CARE Additional Instructions: You were seen today for a migraine headache. Please follow-up with your primary care doctor regarding today's ED visit. Return to emergency department immediately if you develop a headache that gets to its maximum severity within 20 minutes of onset, you pass out, you develop weakness, numbness, changes in your vision, become unable to keep any fluids down for more than 12 hours, or develop a fever greater than 100.4 degrees Fahrenheit. If you develop a similar migraine headache in the future I recommend that you immediately take 600 mg of ibuprofen and 50 mg of Benadryl and go to sleep as quickly as possible. This can often prevent your migraine headache from becoming severe. Forms: Return to Work
[2019-09-15 20:02] VITALS: BP 128/93
== END 2019-09-15 20:10 | disposition home or self-care (01) ==
LOC: ER 17:12
DX: R51 Headache (principal); R10.9 Unspecified abdominal pain; I10 Essential (primary) hypertension
CPT/HCPCS: 99283; 96361; 96374; 96375; J1200; J1885; J0780; J7030